=== PATIENT | male | born 1960 | race Caucasian/White ===

== ENCOUNTER 2016-09-19 13:55 | Emergency (ER) | payer BC, OTHER ==
[~2016-09-19] VITALS: Ht 180.3 cm; Wt 104.3 kg
[~2016-09-19 13:55] MED LIST: HYDR25TA4 OR; LISI-646 OR
[2016-09-19 17:11] VITALS: BP 128/66
== END 2016-09-19 17:24 | disposition home or self-care (01) ==
LOC: ER 13:55
DX: S76.012D Strain of muscle, fascia and tendon of left hip, subsequent encounter (principal); Z79.899 Other long term (current) drug therapy; I10 Essential (primary) hypertension

== ENCOUNTER 2016-09-29 13:14 | Emergency (ER) | payer BC ==
[~2016-09-29] VITALS: Ht 182.9 cm; Wt 104.3 kg
[2016-09-29 15:40] VITALS: BP 190/104
[2016-09-29] MEDS ORDERED: LISINOPRIL 20 MG TAB PO ONE (15:45)
[2016-09-29] MEDS ORDERED: HCTZ 25 MG TAB PO ONE (15:45)
== END 2016-09-29 16:01 | disposition home or self-care (01) ==
LOC: ER 13:29
DX: M25.512 Pain in left shoulder (principal); M25.511 Pain in right shoulder; M25.552 Pain in left hip; M25.551 Pain in right hip; I10 Essential (primary) hypertension; Z76.0 Encounter for issue of repeat prescription

== ENCOUNTER 2023-06-19 16:18 | Inpatient (IN) | payer BC, OTHER ==
[~2023-06-19] VITALS: Ht 180.3 cm; Wt 99.4 kg
[~2023-06-19 16:18] MED LIST changes: -LISI-646 OR; +LISI20TA56 OR
[2023-06-19 17:20] LABS: Urine Bacteria NONE SEEN /hpf (None Seen); Urine Blood Negative /uL (Negative); Urine Clarity Clear (Clear); Urine Color Yellow (Yellow); Urine Mucus FEW (None Seen); Urine Protein, UAD 1+ (Negative); Urine WBC 1 /hpf (0 - 3)
[2023-06-19 17:42] LABS: Mean Corpuscular Hgb Conc. 34.2 g/dL (32.0-36.0)
[2023-06-19 17:43] LABS: Hematocrit 51.1 % (41.0-53.0); Hemoglobin 17.5 g/dL (13.5-17.5); Mean Corpuscular Hemoglobin 29.1 pg (28.0-32.0); Mean Corpuscular Volume 85.2 fL (80.0-100.0); Red Blood Cells 5.99 10^6/uL (4.5-5.90); Red Cell Distribution Width 13.5 % (11.8-14.3)
[2023-06-19] MEDS ORDERED: metroNIDAZOLE 500MG/100ML 100 ML IV ONE (18:00)
[2023-06-19 18:21] LABS: White Blood Cell 37.5 10^3/uL (4.4-10.8)
[2023-06-19 18:22] LABS: Basophils % (manual) 0 (0.0-2.0); Blast Cells 0; Eosinophils % (manual) 0 (0-7); Myelocytes % 0; Promyelocytes % 0; Reactive Lymphocytes 0
[2023-06-19 18:40] LABS: Band Neutrophils % (manual) 7; Lymphocytes % (manual) 4 (10.0-50.0); Metamyelocytes % 1; Monocytes % (manual) 10 (0-12); Platelet Estimate Adequate
[2023-06-19 18:48] LABS: Alanine Aminotransferase 68 U/L (7-40); Albumin 4.8 g/dL (3.2-4.8); Alkaline Phosphatase 147 U/L (46-116); Anion Gap 16 (5-15); Aspartate Aminotransferase 46 U/L (13-40); BUN/Creatinine Ratio 16.8 (10.0-20.0); Blood Urea Nitrogen 19 mg/dL (9-23); Calcium 10.2 mg/dL (8.7-10.4); Carbon Dioxide 16 mmol/L (20-30); Chloride 106 mmol/L (98-107); Glucose 199 mg/dL (74-106); Lipase 30 U/L (12-53); Potassium 4.2 mmol/L (3.5-5.1); Sodium 138 mmol/L (136-145)
[2023-06-19 18:49] LABS: Bilirubin, Total 1.1 mg/dL (0.2-1.0); Total Protein 7.5 g/dL (5.7-8.2)
[2023-06-19] MEDS ORDERED: SODIUM CHLORIDE 0.9% 1,000 ML IV ONE (19:00)
[2023-06-19] MEDS ORDERED: levoFLOXacin 750MG 150 ML IV ONE (20:00)
[2023-06-19] MEDS ORDERED: MORPHINE SULFATE INJ 2 MG/ml SYRG IV PRN ×2 (21:00)
[2023-06-19] MEDS ORDERED: ONDANSETRON HCL 4 MG/2 ML VIAL IV PRN (21:00)
[2023-06-19] MEDS ORDERED: NITROGLYCERIN 0.4 MG SL TAB SL PRN (21:00)
[2023-06-19] MEDS ORDERED: SODIUM CHLORIDE 0.9% 1,000 ML IV SCH ×3 (21:00→23:45)
[2023-06-19 21:43] LABS: Lactic Acid w/Reflex 9.1 mmol/L (0.4-2.0)
[2023-06-19 22:00] VITALS: PULSE 122; RESP 41; O2SAT 100
[2023-06-19 23:00] LABS: Alanine Aminotransferase 68 U/L (7-40); Alkaline Phosphatase 128 U/L (46-116)
[2023-06-19 23:01] LABS: Albumin 4.7 g/dL (3.2-4.8); Anion Gap 24.00001 (5-15); Aspartate Aminotransferase 46 U/L (13-40); BUN/Creatinine Ratio 9.5 (10.0-20.0); Bilirubin, Total 1.2 mg/dL (0.2-1.0); Blood Urea Nitrogen 14 mg/dL (9-23); Chloride 105 mmol/L (98-107); Glucose 246 mg/dL (74-106); Potassium 4.6 mmol/L (3.5-5.1); Sodium 139 mmol/L (136-145); Total Protein 7.8 g/dL (5.7-8.2)
[2023-06-19 23:08] LABS: Carbon Dioxide < 10 mmol/L (20-30)
[2023-06-19 23:10] LABS: Hemoglobin 17.6 g/dL (13.5-17.5)
[2023-06-19 23:12] LABS: Hematocrit 53.8 % (41.0-53.0); Mean Corpuscular Hemoglobin 28.9 pg (28.0-32.0); Mean Corpuscular Hgb Conc. 32.7 g/dL (32.0-36.0); Mean Corpuscular Volume 88.3 fL (80.0-100.0); Red Blood Cells 6.09 10^6/uL (4.5-5.90); Red Cell Distribution Width 13.7 % (11.8-14.3)
[2023-06-19 23:16] LABS: White Blood Cell 36.6 10^3/uL (4.4-10.8)
[2023-06-19 23:17] LABS: Basophils % (manual) 0 (0.0-2.0); Blast Cells 0; Eosinophils % (manual) 0 (0-7); Metamyelocytes % 0; Myelocytes % 0; Promyelocytes % 0; Reactive Lymphocytes 0
[2023-06-19 23:22] LABS: INR 1.14 (0.9-1.15); Partial Thromboplastin Time 27.2 SEC (24.5-34.5); Prothrombin Time 11.9 sec (9.3-11.8)
[2023-06-20] VITALS (59 sets, daily range): BP systolic 65–113; BP diastolic 28–67; PULSE 92–128; RESP 18–50; TEMP 97.2–99.1; O2SAT 81–97
[2023-06-20] MEDS: SODIUM CHLORIDE 0.9% 1,000 ML IV SCH ×2 (00:04→12:08)
[2023-06-20 00:11] LABS: Band Neutrophils % (manual) 19; Lymphocytes % (manual) 3 (10.0-50.0)
[2023-06-20 00:12] LABS: Monocytes % (manual) 13 (0-12); Platelet Estimate Adequate; RBC Morphology Normal
[2023-06-20] MEDS ORDERED: VANCOMYCIN PER PHARMACY 0 MG IV SCH (00:30)
[2023-06-20 00:43] LABS: Base Excess -8.9 mmol/L (-2.0-2.0)
[2023-06-20] MEDS ORDERED: VANCOMYCIN 1GM/250ML 250 ML IV ONE (01:00)
[2023-06-20] MEDS: metroNIDAZOLE 500MG/100ML 100 ML IV SCH ×4 (01:38→22:00)
[2023-06-20 05:47] LABS: Hematocrit 49.4 % (41.0-53.0); Hemoglobin 16.9 g/dL (13.5-17.5); Mean Corpuscular Hemoglobin 29.7 pg (28.0-32.0); Mean Corpuscular Hgb Conc. 34.2 g/dL (32.0-36.0); Mean Corpuscular Volume 86.8 fL (80.0-100.0); Red Blood Cells 5.69 10^6/uL (4.5-5.90); White Blood Cell 20.3 10^3/uL (4.4-10.8)
[2023-06-20 05:57] LABS: Basophils % (manual) 0 (0.0-2.0); Blast Cells 0; Eosinophils % (manual) 0 (0-7); Myelocytes % 0; Promyelocytes % 0; Reactive Lymphocytes 0
[2023-06-20 05:59] LABS: Alanine Aminotransferase 79 U/L (7-40); Alkaline Phosphatase 146 U/L (46-116); Anion Gap 16 (5-15); Aspartate Aminotransferase 57 U/L (13-40); BUN/Creatinine Ratio 12.9 (10.0-20.0); Calcium 9.4 mg/dL (8.5-10.1); Chloride 104 mmol/L (98-107); Glucose 179 mg/dL (74-106); Potassium 4.9 mmol/L (3.5-5.1); Sodium 140 mmol/L (136-145)
[2023-06-20 06:00] LABS: Albumin 4.2 g/dL (3.2-4.8)
[2023-06-20 06:01] LABS: Bilirubin, Total 1.4 mg/dL (0.2-1.0); Total Protein 6.9 g/dL (5.7-8.2)
[2023-06-20 06:33] LABS: Blood Urea Nitrogen 26 mg/dL (9-23); Carbon Dioxide 20 mmol/L (20-30)
[2023-06-20 07:16] LABS: Band Neutrophils % (manual) 24; Lymphocytes % (manual) 5 (10.0-50.0); Metamyelocytes % 7; Monocytes % (manual) 8 (0-12); Platelet Estimate Adequate
[2023-06-20 07:27] LABS: Lactic Acid w/Reflex 4.3 mmol/L (0.4-2.0)
[2023-06-20] MEDS ORDERED: ALBUMIN 25% 100 ML IV ONE ×2 (07:30→08:12)
[2023-06-20] MEDS ORDERED: cefTRIAXone 1GM/50ML D5W 50 ML IV SCH (09:00)
[2023-06-20] MEDS ORDERED: CLINIMIX PER PHARMACY 0 ML IV SCH (12:30)
[2023-06-20 13:16] LABS: Magnesium 2.3 mg/dL (1.6-2.6)
[2023-06-20 13:18] LABS: Phosphorus 2.4 mg/dL (2.4-5.1)
[2023-06-20] MEDS ORDERED: PANTOPRAZOLE 40 MG/10 ML VIAL INJ IV ONE (14:15)
[2023-06-20] MEDS: SODIUM BICARBONATE 50ML VIAL 50 ML in SOD CHL 0.45% 1,000 ML IV SCH ×2 (14:15→16:00)
[2023-06-20] MEDS ORDERED: CEFEPIME 2GM/50ML NS 50 ML IV ONE (14:15)
[2023-06-20] MEDS ORDERED: SODIUM PHOSPHATES 10 MEQ in SODIUM CHL 0.9% 100 ML IV ONE (15:00)
[2023-06-20] MEDS ORDERED: ROCURONIUM 10MG/ML 10ML VIAL IV ONE (15:14)
[2023-06-20] MEDS ORDERED: SUCCINYLCHOLINE CHLORIDE 20 MG/ML 10ML VIAL IV ONE (15:14)
[2023-06-20] MEDS ORDERED: NOREPINEPHRINE 8 MG/250ML KIT 0 ML IV ONE (15:16)
[2023-06-20] MEDS ORDERED: SODIUM BICARBONATE 8.4 % INJ 50ML VIAL IV ONE ×3 (15:19→19:12)
[2023-06-20 15:20] LABS: Base Excess -9.4 mmol/L (-2.0-2.0)
[2023-06-20] MEDS ORDERED: fentaNYL CITRATE 100 MCG/2 ML VL ONE (15:20)
[2023-06-20] MEDS ORDERED: ETOMIDATE (2MG/ML) 20ML VIAL IV ONE (15:20)
[2023-06-20] MEDS ORDERED: fentaNYL CITRATE 5 ML ONE ×3 (15:20→18:56)
[2023-06-20] MEDS ORDERED: HYDROmorphone HCL 2 MG/ML VL/or syr ONE (15:20)
[2023-06-20] MEDS ORDERED: SODIUM CHLORIDE LOCK 40 ML ONE (15:20)
[2023-06-20] MEDS ORDERED: MIDAZOLAM HCL 2MG/2ML 2ml VIAL (1mg/ml) ONE ×5 (15:20→19:22)
[2023-06-20] MEDS ORDERED: DexAMETHasone SOD PHOS 10MG/1ML VIAL INJ ONE (15:20)
[2023-06-20 15:27] LABS: Hematocrit 44.5 % (41.0-53.0); Hemoglobin 14.6 g/dL (13.5-17.5); Mean Corpuscular Hemoglobin 28.8 pg (28.0-32.0); Mean Corpuscular Hgb Conc. 32.9 g/dL (32.0-36.0); Mean Corpuscular Volume 87.4 fL (80.0-100.0); Red Blood Cells 5.09 10^6/uL (4.5-5.90); Red Cell Distribution Width 14.1 % (11.8-14.3); White Blood Cell 14.9 10^3/uL (4.4-10.8)
[2023-06-20 15:30] LABS: Basophils % (manual) 0 (0.0-2.0); Blast Cells 0; Eosinophils % (manual) 0 (0-7); Myelocytes % 0; Promyelocytes % 0; Reactive Lymphocytes 0
[2023-06-20] MEDS: NOREPINEPHRINE 8 MG/250ML KIT 250 ML IV SCH (15:30)
[2023-06-20 15:42] LABS: Chloride 109 mmol/L (98-107); Potassium 4.5 mmol/L (3.5-5.1); Sodium 143 mmol/L (136-145)
[2023-06-20 15:43] LABS: Anion Gap 14 (5-15); Carbon Dioxide 20 mmol/L (20-30)
[2023-06-20 15:44] LABS: Calcium 8.8 mg/dL (8.5-10.1)
[2023-06-20 15:48] LABS: BUN/Creatinine Ratio 12.2 (10.0-20.0); Glucose 111 mg/dL (74-106)
[2023-06-20 15:50] LABS: Blood Urea Nitrogen 40 mg/dL (9-23)
[2023-06-20] MEDS ORDERED: LIDOCAINE 1% (LOCAL ANESTH.) PF 5ml SDV ID ONE (16:15)
[2023-06-20 16:32] LABS: Band Neutrophils % (manual) 40; Lymphocytes % (manual) 8 (10.0-50.0); Metamyelocytes % 1; Monocytes % (manual) 21 (0-12); Platelet Estimate Adequate
[2023-06-20 16:33] LABS: Large Platelets FEW; RBC Morphology Normal
[2023-06-20] MEDS ORDERED: PHENYLEPHRINE HCL 10 MG/ML VL ONE (17:12)
[2023-06-20 18:02] LABS: Base Excess -12.9 mmol/L (-2.0-2.0)
[2023-06-20] MEDS: MIDAZOLAM DRIP 50 mg/50mL 50 ML IV SCH ×2 (20:00→23:28)
[2023-06-20] MEDS: fentaNYL Drip 2500mCg/250mlNS 250 ML IV SCH (20:10)
[2023-06-20] MEDS: D5W/SOD CHL 0.45% 1,000 ML IV SCH (20:30)
[2023-06-20] MEDS: PHENYLEPHRINE IV 250 ML IV SCH (20:50)
[2023-06-20] MEDS: SODIUM CHLOR 0.9% PF (SALINE LOCK) 10ML VIAL/SYR IV SCH (22:00)
[2023-06-20 22:01] LABS: Hematocrit 40.3 % (41.0-53.0); Hemoglobin 13.5 g/dL (13.5-17.5); Mean Corpuscular Hemoglobin 29.3 pg (28.0-32.0); Mean Corpuscular Hgb Conc. 33.6 g/dL (32.0-36.0); Mean Corpuscular Volume 87.1 fL (80.0-100.0); Red Blood Cells 4.62 10^6/uL (4.5-5.90); Red Cell Distribution Width 13.8 % (11.8-14.3); White Blood Cell 5.9 10^3/uL (4.4-10.8)
[2023-06-20 22:07] LABS: Basophils % (manual) 0 (0.0-2.0); Blast Cells 0; Eosinophils % (manual) 0 (0-7); Metamyelocytes % 0; Myelocytes % 0; Promyelocytes % 0; Reactive Lymphocytes 0
[2023-06-20 22:11] LABS: Chloride 111 mmol/L (98-107); Sodium 146 mmol/L (136-145)
[2023-06-20 22:12] LABS: Anion Gap 11 (5-15); Calcium 7.7 mg/dL (8.7-10.4); Carbon Dioxide 24 mmol/L (20-30)
[2023-06-20 22:17] LABS: BUN/Creatinine Ratio 14.9 (10.0-20.0); Blood Urea Nitrogen 43 mg/dL (9-23); Glucose 142 mg/dL (74-106)
[2023-06-20 22:32] LABS: Band Neutrophils % (manual) 26; Lymphocytes % (manual) 20 (10.0-50.0); Monocytes % (manual) 22 (0-12)
[2023-06-20 22:37] LABS: Anisocytosis Slight; Platelet Estimate Adequate
[2023-06-20 22:38] LABS: Large Platelets FEW
[2023-06-20] MEDS: AMINO ACID INFUSION IN D10W 1,000 ML IV NR (23:00)
[2023-06-20] MEDS: CEFEPIME 2GM/50ML NS 50 ML IV SCH (23:25)
[2023-06-21] VITALS (116 sets, daily range): BP systolic 66–143; BP diastolic 13–77; PULSE 80–97; RESP 16–24; TEMP 98.6–100; O2SAT 88–100
[2023-06-21] MEDS ORDERED: DEXTROSE (50%) 50ML SYRG IV SCH
[2023-06-21] MEDS: NOREPINEPHRINE 8 MG/250ML KIT 250 ML IV SCH ×3 (00:15→08:20)
[2023-06-21] MEDS: ACCU-CHEK COMFORT CURVE STRIP VI SCH ×5 (00:15→23:45)
[2023-06-21] MEDS: InsuLIN REG 1unit/0.01ml Soln (100units/ml) SC SCH ×5 (00:15→23:44)
[2023-06-21] MEDS: PHENYLEPHRINE IV 250 ML IV SCH ×6 (00:18→08:42)
[2023-06-21] MEDS: SODIUM BICARBONATE 50ML VIAL 50 ML in SOD CHL 0.45% 1,000 ML IV SCH ×2 (00:45→08:49)
[2023-06-21] MEDS ORDERED: SODIUM CHLORIDE 0.9% 1,000 ML IV ONE (03:00)
[2023-06-21] MEDS: MIDAZOLAM DRIP 50 mg/50mL 50 ML IV SCH ×4 (03:56→18:10)
[2023-06-21 04:39] LABS: Hematocrit 38.5 % (41.0-53.0); Hemoglobin 12.8 g/dL (13.5-17.5); Mean Corpuscular Hemoglobin 29.4 pg (28.0-32.0); Mean Corpuscular Hgb Conc. 33.2 g/dL (32.0-36.0); Mean Corpuscular Volume 88.4 fL (80.0-100.0); Red Blood Cells 4.35 10^6/uL (4.5-5.90); White Blood Cell 5.8 10^3/uL (4.4-10.8)
[2023-06-21 04:56] LABS: Basophils % (manual) 0 (0.0-2.0); Blast Cells 0; Promyelocytes % 0; Reactive Lymphocytes 0
[2023-06-21 05:02] LABS: INR 1.42 (0.9-1.15); Partial Thromboplastin Time 41.3 SEC (24.5-34.5); Prothrombin Time 14.6 sec (9.3-11.8)
[2023-06-21] MEDS ORDERED: LACTATED RINGER'S 1,000 ML IV ONE (05:15)
[2023-06-21] MEDS: metroNIDAZOLE 500MG/100ML 100 ML IV SCH ×3 (05:39→20:43)
[2023-06-21] MEDS: VASOPRESSIN 20 UNITS in SODIUM CHL 0.9% 99 ML IV SCH ×5 (05:45→17:18)
[2023-06-21 06:50] LABS: Band Neutrophils % (manual) 35; Eosinophils % (manual) 1 (0-7); Lymphocytes % (manual) 14 (10.0-50.0); Metamyelocytes % 1; Monocytes % (manual) 22 (0-12); Myelocytes % 10
[2023-06-21 06:51] LABS: Anisocytosis Slight; Large Platelets FEW; Platelet Estimate Adequate
[2023-06-21 06:55] LABS: Base Excess -6.6 mmol/L (-2.0-2.0)
[2023-06-21] MEDS ORDERED: ALBUMIN 25% 100 ML IV ONE (07:15)
[2023-06-21] MEDS: PANTOPRAZOLE 40 MG/10 ML VIAL INJ IV SCH (08:48)
[2023-06-21] MEDS: CEFEPIME 2GM/50ML NS 50 ML IV SCH ×2 (08:49→21:46)
[2023-06-21] MEDS: SODIUM CHLOR 0.9% PF (SALINE LOCK) 10ML VIAL/SYR IV SCH ×2 (08:49→20:43)
[2023-06-21] MEDS: D5W/SOD CHL 0.45% 1,000 ML IV SCH ×2 (08:49→15:03)
[2023-06-21] MEDS ORDERED: VANCOMYCIN 1GM/250ML 250 ML IV ONE (09:15)
[2023-06-21 10:36] LABS: Alanine Aminotransferase 194 U/L (7-40); Alkaline Phosphatase 92 U/L (46-116); Anion Gap 8 (5-15); Aspartate Aminotransferase 212 U/L (13-40); BUN/Creatinine Ratio 15.4 (10.0-20.0); Bilirubin, Total 1.1 mg/dL (0.2-1.0); Blood Urea Nitrogen 38 mg/dL (9-23); Calcium 7.3 mg/dL (8.5-10.1); Carbon Dioxide 24 mmol/L (20-30); Chloride 110 mmol/L (98-107); Glucose 186 mg/dL (74-106); Phosphorus 4.9 mg/dL (2.4-5.1); Potassium 5.2 mmol/L (3.5-5.1); Sodium 142 mmol/L (136-145); Total Protein 4.7 g/dL (5.7-8.2)
[2023-06-21 11:06] LABS: Protein, Urine 92.7 mg/dL (0.0-11.9)
[2023-06-21 11:08] LABS: Creatinine, Urine 123.29 mg/dL (30.0-125.0); Urine Protein/Creatinine Ratio 0.75
[2023-06-21] MEDS ORDERED: FUROSEMIDE 100 MG/10ML VIAL IV ONE (14:15)
[2023-06-21] MEDS ORDERED: SOD CHL 0.45% 1,000 ML IV SCH (14:30)
[2023-06-21] MEDS ORDERED: TPN PER PHARMACY 0 ML IV SCH (15:30)
[2023-06-21] MEDS ORDERED: LOSA50TA46 PO (16:47)
[2023-06-21] MEDS ORDERED: HYDR25TA4 PO (16:47)
[2023-06-21] MEDS ORDERED: CITA-77 PO (16:47)
[2023-06-21] MEDS ORDERED: ROSU10TA16 PO (16:47)
[2023-06-21 16:49] LABS: Base Excess -7.9 mmol/L (-2.0-2.0)
[2023-06-21] MEDS: NOREPINEPHRINE BITARTRATE 32 MG in SODIUM CHL 0.9% 218 ML IV SCH (17:01)
[2023-06-21] MEDS: PHENYLEPHRINE INJ 80 MG in SODIUM CHL 0.9% 242 ML IV SCH (17:01)
[2023-06-21] MEDS: fentaNYL Drip 2500mCg/250mlNS 250 ML IV SCH (18:14)
[2023-06-21 19:04] LABS: Anion Gap 6 (5-15); Calcium 6.6 mg/dL (8.7-10.4); Carbon Dioxide 22 mmol/L (20-30); Chloride 110 mmol/L (98-107); Potassium 4.7 mmol/L (3.5-5.1); Sodium 138 mmol/L (136-145)
[2023-06-21 19:08] LABS: Glucose 207 mg/dL (74-106)
[2023-06-21 19:09] LABS: Magnesium 1.6 mg/dL (1.6-2.6)
[2023-06-21 19:10] LABS: BUN/Creatinine Ratio 21.1 (10.0-20.0)
[2023-06-21 19:17] LABS: Blood Urea Nitrogen 50 mg/dL (9-23)
[2023-06-21] MEDS: MAGNESIUM SULFATE 1GM/100ML 100 ML IV SCH ×2 (20:33→21:46)
[2023-06-21] MEDS: AMINO ACID INFUSION IN D10W 1,000 ML IV NR (20:33)
[2023-06-22] VITALS (114 sets, daily range): BP systolic 71–123; BP diastolic 38–81; PULSE 77–119; RESP 17–24; TEMP 97.5–100.2; O2SAT 95–100
[2023-06-22] MEDS: D5W/SOD CHL 0.45% 1,000 ML IV SCH ×3 (02:11→20:15)
[2023-06-22] MEDS: MIDAZOLAM DRIP 50 mg/50mL 50 ML IV SCH ×5 (02:23→21:54)
[2023-06-22] MEDS: NOREPINEPHRINE BITARTRATE 32 MG in SODIUM CHL 0.9% 218 ML IV SCH ×2 (04:12→18:39)
[2023-06-22] MEDS: PHENYLEPHRINE INJ 80 MG in SODIUM CHL 0.9% 242 ML IV SCH ×2 (04:13→15:54)
[2023-06-22 04:40] LABS: Basophils # (auto) 0 10 ^3/uL (0-0.2); Basophils % (auto) 0.2 % (0.0-2.0); Eosinophils # (auto) 0.2 10 ^3/uL (0-0.8); Eosinophils % (auto) 1.1 % (0.0-7.0); Hematocrit 33.8 % (41.0-53.0); Hemoglobin 11.3 g/dL (13.5-17.5); Lymphocytes # (auto) 0.8 10 ^3/uL (0.4-5.4); Lymphocytes % (auto) 5.8 % (10.0-50.0); Mean Corpuscular Hgb Conc. 33.5 g/dL (32.0-36.0); Mean Corpuscular Volume 86.5 fL (80.0-100.0); Monocytes % (auto) 7.1 % (0.0-12.0); Neutrophils # (auto) 12.5 10 ^3/uL (1.6-8.6); Neutrophils % (auto) 85.8 % (37.0-80.0); Nucleated Red Blood Cells % 0.1 %; Red Blood Cells 3.91 10^6/uL (4.5-5.90); Red Cell Distribution Width 14.1 % (11.8-14.3); White Blood Cell 14.6 10^3/uL (4.4-10.8)
[2023-06-22 04:56] LABS: Alanine Aminotransferase 189 U/L (7-40); Albumin 2.8 g/dL (3.2-4.8); Alkaline Phosphatase 78 U/L (46-116); Anion Gap 9 (5-15); Aspartate Aminotransferase 175 U/L (13-40); BUN/Creatinine Ratio 17.7 (10.0-20.0); Blood Urea Nitrogen 47 mg/dL (9-23); Calcium 7.3 mg/dL (8.5-10.1); Carbon Dioxide 21 mmol/L (20-30); Chloride 108 mmol/L (98-107); Glucose 159 mg/dL (74-106); Potassium 4.4 mmol/L (3.5-5.1); Sodium 138 mmol/L (136-145); Triglycerides 116 mg/dL (< 150)
[2023-06-22 04:57] LABS: Phosphorus 4.2 mg/dL (2.4-5.1); Total Protein 4.6 g/dL (5.7-8.2)
[2023-06-22] MEDS: metroNIDAZOLE 500MG/100ML 100 ML IV SCH ×3 (05:13→20:57)
[2023-06-22] MEDS: InsuLIN REG 1unit/0.01ml Soln (100units/ml) SC SCH ×4 (05:18→23:27)
[2023-06-22] MEDS: ACCU-CHEK COMFORT CURVE STRIP VI SCH ×4 (05:18→23:27)
[2023-06-22 07:55] LABS: Base Excess -7.5 mmol/L (-2.0-2.0)
[2023-06-22] MEDS: CEFEPIME 2GM/50ML NS 50 ML IV SCH ×2 (09:32→21:06)
[2023-06-22] MEDS: PANTOPRAZOLE 40 MG/10 ML VIAL INJ IV SCH (09:32)
[2023-06-22] MEDS: SODIUM CHLOR 0.9% PF (SALINE LOCK) 10ML VIAL/SYR IV SCH ×2 (09:32→21:06)
[2023-06-22] MEDS ORDERED: VANCOMYCIN 1GM/250ML 250 ML IV ONE (10:00)
[2023-06-22] MEDS ORDERED: FUROSEMIDE 100 MG/10ML VIAL IV ONE (13:45)
[2023-06-22] MEDS: ENOXAPARIN SOD 30 MG/0.3 ML SYRINGE SC SCH (14:09)
[2023-06-22] MEDS: fentaNYL Drip 2500mCg/250mlNS 250 ML IV SCH (14:27)
[2023-06-22] MEDS ORDERED: TPN PER PHARMACY IV NR ×10 (20:00)
[2023-06-22] MEDS: VASOPRESSIN 20 UNITS in SODIUM CHL 0.9% 99 ML IV SCH (22:50)
[2023-06-23] VITALS (114 sets, daily range): BP systolic 88–222; BP diastolic 46–181; PULSE 65–153; RESP 10–24; TEMP 98.2–100.2; O2SAT 80–100
[2023-06-23] MEDS: D5W/SOD CHL 0.45% 1,000 ML IV SCH ×2 (01:00→10:09)
[2023-06-23] MEDS: PHENYLEPHRINE INJ 80 MG in SODIUM CHL 0.9% 242 ML IV SCH ×2 (01:01→12:35)
[2023-06-23] MEDS: MIDAZOLAM DRIP 50 mg/50mL 50 ML IV SCH ×5 (02:21→21:58)
[2023-06-23 04:34] LABS: Basophils # (auto) 0.1 10 ^3/uL (0-0.2); Basophils % (auto) 0.3 % (0.0-2.0); Eosinophils # (auto) 0.2 10 ^3/uL (0-0.8); Eosinophils % (auto) 1.3 % (0.0-7.0); Hemoglobin 11.2 g/dL (13.5-17.5); Lymphocytes # (auto) 0.8 10 ^3/uL (0.4-5.4); Lymphocytes % (auto) 4.3 % (10.0-50.0); Mean Corpuscular Hemoglobin 28.4 pg (28.0-32.0); Mean Corpuscular Hgb Conc. 32.8 g/dL (32.0-36.0); Mean Corpuscular Volume 86.7 fL (80.0-100.0); Monocytes # (auto) 1.6 10 ^3/uL (0-1.3); Neutrophils # (auto) 15.4 10 ^3/uL (1.6-8.6); Neutrophils % (auto) 85.1 % (37.0-80.0); Red Blood Cells 3.92 10^6/uL (4.5-5.90); Red Cell Distribution Width 14.2 % (11.8-14.3); White Blood Cell 18.1 10^3/uL (4.4-10.8)
[2023-06-23 05:08] LABS: Alanine Aminotransferase 146 U/L (7-40); Albumin 2.8 g/dL (3.2-4.8); Alkaline Phosphatase 104 U/L (46-116); Anion Gap 7 (5-15); Aspartate Aminotransferase 99 U/L (13-40); BUN/Creatinine Ratio 16.9 (10.0-20.0); Blood Urea Nitrogen 50 mg/dL (9-23); Calcium 7.8 mg/dL (8.7-10.4); Carbon Dioxide 19 mmol/L (20-30); Chloride 109 mmol/L (98-107); Glucose 189 mg/dL (74-106); Phosphorus 3.6 mg/dL (2.4-5.1); Potassium 4.2 mmol/L (3.5-5.1); Sodium 135 mmol/L (136-145)
[2023-06-23 05:09] LABS: Bilirubin, Total 0.6 mg/dL (0.2-1.0); Total Protein 4.8 g/dL (5.7-8.2)
[2023-06-23] MEDS: metroNIDAZOLE 500MG/100ML 100 ML IV SCH ×3 (05:23→21:31)
[2023-06-23] MEDS: InsuLIN REG 1unit/0.01ml Soln (100units/ml) SC SCH ×3 (05:48→18:17)
[2023-06-23] MEDS: ACCU-CHEK COMFORT CURVE STRIP VI SCH ×3 (05:48→18:11)
[2023-06-23 07:41] LABS: Base Excess -8.9 mmol/L (-2.0-2.0)
[2023-06-23] MEDS ORDERED: BUMETANIDE 2.5mg/10ml (0.25 mg/ml) INJ IV ONE (08:15)
[2023-06-23] MEDS: VASOPRESSIN 20 UNITS in SODIUM CHL 0.9% 99 ML IV SCH ×2 (10:05→21:10)
[2023-06-23] MEDS: SODIUM CHLOR 0.9% PF (SALINE LOCK) 10ML VIAL/SYR IV SCH ×2 (10:09→21:31)
[2023-06-23] MEDS: PANTOPRAZOLE 40 MG/10 ML VIAL INJ IV SCH (10:09)
[2023-06-23] MEDS: ENOXAPARIN SOD 30 MG/0.3 ML SYRINGE SC SCH (10:09)
[2023-06-23] MEDS: CEFEPIME 2GM/50ML NS 50 ML IV SCH ×2 (10:09→21:31)
[2023-06-23] MEDS: NOREPINEPHRINE BITARTRATE 32 MG in SODIUM CHL 0.9% 218 ML IV SCH (10:59)
[2023-06-23] MEDS ORDERED: VANCOMYCIN 1GM/250ML 250 ML IV ONE (13:45)
[2023-06-23] MEDS: fentaNYL Drip 2500mCg/250mlNS 250 ML IV SCH (16:44)
[2023-06-23] MEDS ORDERED: TPN PER PHARMACY IV NR ×12 (20:00)
[2023-06-24] VITALS (109 sets, daily range): BP systolic 83–128; BP diastolic 39–74; PULSE 63–88; RESP 16–24; TEMP 97.9–99.3; O2SAT 68–100
[2023-06-24] MEDS: ACCU-CHEK COMFORT CURVE STRIP VI SCH ×4 (00:32→17:33)
[2023-06-24] MEDS: InsuLIN REG 1unit/0.01ml Soln (100units/ml) SC SCH ×4 (00:43→17:49)
[2023-06-24] MEDS: MIDAZOLAM DRIP 50 mg/50mL 50 ML IV SCH ×5 (01:09→21:28)
[2023-06-24] MEDS: NOREPINEPHRINE BITARTRATE 32 MG in SODIUM CHL 0.9% 218 ML IV SCH ×2 (03:18→17:33)
[2023-06-24 03:54] LABS: Alanine Aminotransferase 104 U/L (7-40); Albumin 2.7 g/dL (3.2-4.8); Alkaline Phosphatase 129 U/L (46-116); Anion Gap 5 (5-15); Aspartate Aminotransferase 60 U/L (13-40); BUN/Creatinine Ratio 17.4 (10.0-20.0); Blood Urea Nitrogen 48 mg/dL (9-23); Calcium 8.2 mg/dL (8.7-10.4); Carbon Dioxide 23 mmol/L (20-30); Chloride 110 mmol/L (98-107); Glucose 211 mg/dL (74-106); Potassium 3.9 mmol/L (3.5-5.1); Sodium 138 mmol/L (136-145)
[2023-06-24 03:55] LABS: Bilirubin, Total 0.4 mg/dL (0.2-1.0); Phosphorus 2.9 mg/dL (2.4-5.1); Total Protein 4.7 g/dL (5.7-8.2)
[2023-06-24] MEDS: fentaNYL Drip 2500mCg/250mlNS 250 ML IV SCH ×2 (05:30→15:24)
[2023-06-24] MEDS: metroNIDAZOLE 500MG/100ML 100 ML IV SCH ×3 (05:51→21:41)
[2023-06-24] MEDS: D5W/SOD CHL 0.45% 1,000 ML IV SCH (05:51)
[2023-06-24] MEDS: VASOPRESSIN 20 UNITS in SODIUM CHL 0.9% 99 ML IV SCH ×2 (08:18→17:06)
[2023-06-24 08:30] LABS: Hematocrit 32.1 % (41.0-53.0); Hemoglobin 10.6 g/dL (13.5-17.5); Mean Corpuscular Volume 90.8 fL (80.0-100.0); Red Blood Cells 3.53 10^6/uL (4.5-5.90); Red Cell Distribution Width 15.3 % (11.8-14.3); White Blood Cell 11.5 10^3/uL (4.4-10.8)
[2023-06-24 08:43] LABS: Basophils % (manual) 0 (0.0-2.0); Blast Cells 0; Monocytes % (manual) 0 (0-12); Promyelocytes % 0; Reactive Lymphocytes 0
[2023-06-24 09:00] LABS: Band Neutrophils % (manual) 9; Lymphocytes % (manual) 7 (10.0-50.0)
[2023-06-24 09:01] LABS: Anisocytosis Slight; Eosinophils % (manual) 3 (0-7); Metamyelocytes % 1; Myelocytes % 1; Platelet Estimate Adequate
[2023-06-24 09:28] LABS: Base Excess -6.3 mmol/L (-2.0-2.0)
[2023-06-24] MEDS: PROPOFOL 100 ML IV SCH (09:45)
[2023-06-24] MEDS: PANTOPRAZOLE 40 MG/10 ML VIAL INJ IV SCH (09:53)
[2023-06-24] MEDS: CEFEPIME 2GM/50ML NS 50 ML IV SCH ×2 (09:53→21:41)
[2023-06-24] MEDS: SODIUM CHLOR 0.9% PF (SALINE LOCK) 10ML VIAL/SYR IV SCH ×2 (09:55→21:41)
[2023-06-24] MEDS ORDERED: LIDOCAINE 2% JELLY 11ml (GLYDO) ONE (10:59)
[2023-06-24] MEDS ORDERED: EPINEPHrine HCL 1 MG/10 ML SYRG ONE (11:00)
[2023-06-24] MEDS ORDERED: LIDOCAINE 2%HCL (LOCAL ANESTH.) INJ 20ML MDV ONE (11:00)
[2023-06-24] MEDS ORDERED: GLYCOPYRROLATE 0.2 MG/ML 1ML VIAL ONE (11:01)
[2023-06-24] MEDS ORDERED: EPINEPHrine HCL 1 MG/1 ML AMP ONE (11:04)
[2023-06-24 11:18] LABS: INR 1.31 (0.9-1.15); Partial Thromboplastin Time 37.6 SEC (24.5-34.5); Prothrombin Time 13.5 sec (9.3-11.8)
[2023-06-24] MEDS ORDERED: SODIUM BICARBONATE 8.4 % INJ 50ML VIAL IV ONE (11:30)
[2023-06-24] MEDS ORDERED: VANCOMYCIN 500 MG in D5W 5% 100 ML IV ONE (13:00)
[2023-06-24] MEDS ORDERED: ROCURONIUM 10MG/ML 10ML VIAL IV ONE ×2 (13:15→13:30)
[2023-06-24] MEDS ORDERED: BUMETANIDE 2.5mg/10ml (0.25 mg/ml) INJ IV ONE (14:00)
[2023-06-24] MEDS: PHENYLEPHRINE INJ 80 MG in SODIUM CHL 0.9% 242 ML IV SCH (14:30)
[2023-06-24] MEDS: ENOXAPARIN SOD 30 MG/0.3 ML SYRINGE SC SCH (15:30)
[2023-06-24] MEDS ORDERED: TPN PER PHARMACY IV NR ×12 (20:00)
[2023-06-25] VITALS (102 sets, daily range): BP systolic 80–141; BP diastolic 36–68; PULSE 60–85; RESP 8–28; TEMP 97–99.5; O2SAT 93–100
[2023-06-25 04:50] LABS: Alanine Aminotransferase 75 U/L (7-40); Albumin 2.7 g/dL (3.2-4.8); Alkaline Phosphatase 127 U/L (46-116); Anion Gap 9 (5-15); Aspartate Aminotransferase 43 U/L (13-40); BUN/Creatinine Ratio 19.9 (10.0-20.0); Bilirubin, Total 0.5 mg/dL (0.2-1.0); Blood Urea Nitrogen 54 mg/dL (9-23); Calcium 8.4 mg/dL (8.5-10.1); Carbon Dioxide 23 mmol/L (20-30); Chloride 111 mmol/L (98-107); Glucose 155 mg/dL (74-106); Phosphorus 3.2 mg/dL (2.4-5.1); Potassium 3.7 mmol/L (3.5-5.1); Sodium 143 mmol/L (136-145); Total Protein 4.8 g/dL (5.7-8.2)
[2023-06-25] MEDS: metroNIDAZOLE 500MG/100ML 100 ML IV SCH ×3 (05:39→21:57)
[2023-06-25] MEDS: ACCU-CHEK COMFORT CURVE STRIP VI SCH ×4 (05:40→18:01)
[2023-06-25] MEDS: InsuLIN REG 1unit/0.01ml Soln (100units/ml) SC SCH ×4 (05:49→18:19)
[2023-06-25] MEDS: MIDAZOLAM DRIP 50 mg/50mL 50 ML IV SCH ×2 (05:56→23:10)
[2023-06-25] MEDS: VASOPRESSIN 20 UNITS in SODIUM CHL 0.9% 99 ML IV SCH ×2 (06:33→17:40)
[2023-06-25] MEDS: BUMETANIDE 2.5mg/10ml (0.25 mg/ml) INJ IV SCH ×2 (07:46→18:01)
[2023-06-25] MEDS: PROPOFOL 100 ML IV SCH (08:22)
[2023-06-25 09:05] LABS: Base Excess -2.1 mmol/L (-2.0-2.0)
[2023-06-25] MEDS: CEFEPIME 2GM/50ML NS 50 ML IV SCH ×2 (10:08→23:08)
[2023-06-25] MEDS: SODIUM CHLOR 0.9% PF (SALINE LOCK) 10ML VIAL/SYR IV SCH ×2 (10:08→21:59)
[2023-06-25] MEDS: PANTOPRAZOLE 40 MG/10 ML VIAL INJ IV SCH (10:08)
[2023-06-25] MEDS: ENOXAPARIN SOD 30 MG/0.3 ML SYRINGE SC SCH (10:09)
[2023-06-25] MEDS: fentaNYL Drip 2500mCg/250mlNS 250 ML IV SCH (10:12)
[2023-06-25] MEDS: PHENYLEPHRINE INJ 80 MG in SODIUM CHL 0.9% 242 ML IV SCH (13:19)
[2023-06-25] MEDS: SOD CHL 0.45% 1,000 ML IV SCH (14:55)
[2023-06-25] MEDS ORDERED: TPN PER PHARMACY IV NR ×12 (20:00)
[2023-06-26] VITALS (110 sets, daily range): BP systolic 68–133; BP diastolic 34–71; PULSE 67–89; RESP 12–28; TEMP 90.3–99.9; O2SAT 91–99
[2023-06-26] MEDS: ACCU-CHEK COMFORT CURVE STRIP VI SCH ×5 (00:09→23:51)
[2023-06-26] MEDS: InsuLIN REG 1unit/0.01ml Soln (100units/ml) SC SCH ×5 (00:10→23:55)
[2023-06-26] MEDS: NOREPINEPHRINE BITARTRATE 32 MG in SODIUM CHL 0.9% 218 ML IV SCH (00:16)
[2023-06-26] MEDS: SOD CHL 0.45% 1,000 ML IV SCH ×3 (04:35→19:50)
[2023-06-26] MEDS: VASOPRESSIN 20 UNITS in SODIUM CHL 0.9% 99 ML IV SCH ×2 (04:36→15:54)
[2023-06-26] MEDS: metroNIDAZOLE 500MG/100ML 100 ML IV SCH ×3 (05:25→21:31)
[2023-06-26] MEDS: BUMETANIDE 2.5mg/10ml (0.25 mg/ml) INJ IV SCH ×2 (05:25→17:40)
[2023-06-26 05:55] LABS: Hematocrit 29.4 % (41.0-53.0); Mean Corpuscular Hgb Conc. 33.9 g/dL (32.0-36.0); Mean Corpuscular Volume 85.5 fL (80.0-100.0); Red Blood Cells 3.44 10^6/uL (4.5-5.90); Red Cell Distribution Width 14.2 % (11.8-14.3); White Blood Cell 13.7 10^3/uL (4.4-10.8)
[2023-06-26 06:04] LABS: Basophils % (manual) 0 (0.0-2.0); Blast Cells 0; Myelocytes % 0; Promyelocytes % 0; Reactive Lymphocytes 0
[2023-06-26 06:13] LABS: Alanine Aminotransferase 52 U/L (7-40); Albumin 2.7 g/dL (3.2-4.8); Alkaline Phosphatase 130 U/L (46-116); Anion Gap 7 (5-15); Aspartate Aminotransferase 36 U/L (13-40); BUN/Creatinine Ratio 20.1 (10.0-20.0); Calcium 8.3 mg/dL (8.7-10.4); Carbon Dioxide 23 mmol/L (20-30); Chloride 111 mmol/L (98-107); Glucose 170 mg/dL (74-106); Magnesium 2.1 mg/dL (1.6-2.6); Phosphorus 3.9 mg/dL (2.4-5.1); Potassium 3.5 mmol/L (3.5-5.1); Sodium 141 mmol/L (136-145)
[2023-06-26 06:14] LABS: Bilirubin, Total 0.3 mg/dL (0.2-1.0); Total Protein 4.8 g/dL (5.7-8.2)
[2023-06-26 06:29] LABS: Blood Urea Nitrogen 64 mg/dL (9-23)
[2023-06-26] MEDS: fentaNYL Drip 2500mCg/250mlNS 250 ML IV SCH ×2 (07:02→23:47)
[2023-06-26 07:30] LABS: Base Excess -3.9 mmol/L (-2.0-2.0)
[2023-06-26 07:45] LABS: Band Neutrophils % (manual) 12; Eosinophils % (manual) 1 (0-7); Lymphocytes % (manual) 10 (10.0-50.0); Metamyelocytes % 2; Monocytes % (manual) 12 (0-12); Platelet Estimate Adequate
[2023-06-26] MEDS: PROPOFOL 100 ML IV SCH (09:34)
[2023-06-26] MEDS: CEFEPIME 2GM/50ML NS 50 ML IV SCH ×2 (09:46→22:31)
[2023-06-26] MEDS: ENOXAPARIN SOD 30 MG/0.3 ML SYRINGE SC SCH (09:46)
[2023-06-26] MEDS: PANTOPRAZOLE 40 MG/10 ML VIAL INJ IV SCH (09:46)
[2023-06-26] MEDS: SODIUM CHLOR 0.9% PF (SALINE LOCK) 10ML VIAL/SYR IV SCH ×2 (09:46→21:32)
[2023-06-26] MEDS ORDERED: POTASSIUM CHL 20MEQ/100ML 100 ML IV ONE (11:15)
[2023-06-26] MEDS: MIDAZOLAM DRIP 50 mg/50mL 50 ML IV SCH (11:38)
[2023-06-26] MEDS: PHENYLEPHRINE INJ 80 MG in SODIUM CHL 0.9% 242 ML IV SCH (14:30)
[2023-06-26] MEDS: DOPamine 1600MCG/ML D5W 250 ML IV SCH (15:51)
[2023-06-26] MEDS ORDERED: TPN PER PHARMACY IV NR ×11 (20:00)
[2023-06-27] VITALS (112 sets, daily range): BP systolic 58–120; BP diastolic 43–70; PULSE 77–86; RESP 13–26; TEMP 98.1–99.3; O2SAT 93–100
[2023-06-27] MEDS: VASOPRESSIN 20 UNITS in SODIUM CHL 0.9% 99 ML IV SCH ×2 (03:01→14:08)
[2023-06-27 04:08] LABS: Basophils # (auto) 0 10 ^3/uL (0-0.2); Basophils % (auto) 0.3 % (0.0-2.0); Eosinophils # (auto) 0.2 10 ^3/uL (0-0.8); Eosinophils % (auto) 1.4 % (0.0-7.0); Hematocrit 30.6 % (41.0-53.0); Hemoglobin 10.3 g/dL (13.5-17.5); Lymphocytes # (auto) 0.8 10 ^3/uL (0.4-5.4); Mean Corpuscular Hgb Conc. 33.5 g/dL (32.0-36.0); Mean Corpuscular Volume 86.6 fL (80.0-100.0); Monocytes # (auto) 1.2 10 ^3/uL (0-1.3); Monocytes % (auto) 9.1 % (0.0-12.0); Neutrophils # (auto) 11.4 10 ^3/uL (1.6-8.6); Neutrophils % (auto) 83.2 % (37.0-80.0); Nucleated Red Blood Cells % 0.1 %; Red Blood Cells 3.54 10^6/uL (4.5-5.90); Red Cell Distribution Width 14.4 % (11.8-14.3); White Blood Cell 13.7 10^3/uL (4.4-10.8)
[2023-06-27 05:31] LABS: Chloride 110 mmol/L (98-107); Sodium 140 mmol/L (136-145)
[2023-06-27] MEDS: metroNIDAZOLE 500MG/100ML 100 ML IV SCH ×3 (05:33→21:59)
[2023-06-27 05:34] LABS: Anion Gap 8 (5-15); Carbon Dioxide 22 mmol/L (20-30)
[2023-06-27] MEDS: BUMETANIDE 2.5mg/10ml (0.25 mg/ml) INJ IV SCH (05:34)
[2023-06-27 05:35] LABS: Calcium 8.5 mg/dL (8.5-10.1)
[2023-06-27 05:39] LABS: Alkaline Phosphatase 113 U/L (46-116); Glucose 138 mg/dL (74-106)
[2023-06-27 05:40] LABS: BUN/Creatinine Ratio 18.6 (10.0-20.0); Blood Urea Nitrogen 69 mg/dL (9-23); Triglycerides 163 mg/dL (< 150)
[2023-06-27 05:41] LABS: Alanine Aminotransferase 43 U/L (7-40); Albumin 2.9 g/dL (3.2-4.8); Aspartate Aminotransferase 34 U/L (13-40)
[2023-06-27 05:42] LABS: Bilirubin, Total 0.4 mg/dL (0.2-1.0); Phosphorus 4.7 mg/dL (2.4-5.1); Total Protein 5.4 g/dL (5.7-8.2)
[2023-06-27 06:16] LABS: Magnesium 2.3 mg/dL (1.6-2.6)
[2023-06-27] MEDS: ACCU-CHEK COMFORT CURVE STRIP VI SCH ×4 (06:24→23:44)
[2023-06-27] MEDS: MIDAZOLAM DRIP 50 mg/50mL 50 ML IV SCH (06:24)
[2023-06-27] MEDS: InsuLIN REG 1unit/0.01ml Soln (100units/ml) SC SCH ×4 (06:25→23:45)
[2023-06-27 07:44] LABS: Base Excess -4.9 mmol/L (-2.0-2.0)
[2023-06-27] MEDS: PROPOFOL 100 ML IV SCH (09:45)
[2023-06-27] MEDS: CEFEPIME 2GM/50ML NS 50 ML IV SCH (10:29)
[2023-06-27] MEDS: PANTOPRAZOLE 40 MG/10 ML VIAL INJ IV SCH (10:29)
[2023-06-27] MEDS: ENOXAPARIN SOD 30 MG/0.3 ML SYRINGE SC SCH (10:29)
[2023-06-27] MEDS: SODIUM CHLOR 0.9% PF (SALINE LOCK) 10ML VIAL/SYR IV SCH ×2 (10:30→21:59)
[2023-06-27] MEDS: SOD CHL 0.45% 1,000 ML IV SCH ×2 (13:00→23:38)
[2023-06-27] MEDS: NOREPINEPHRINE BITARTRATE 32 MG in SODIUM CHL 0.9% 218 ML IV SCH (13:30)
[2023-06-27] MEDS: PHENYLEPHRINE INJ 80 MG in SODIUM CHL 0.9% 242 ML IV SCH (14:30)
[2023-06-27] MEDS: BUMETANIDE 1mg/4ml VIAL (0.25mg/ml) IV SCH (15:45)
[2023-06-27] MEDS: DOPamine 1600MCG/ML D5W 250 ML IV SCH (15:45)
[2023-06-27] MEDS: fentaNYL Drip 2500mCg/250mlNS 250 ML IV SCH (15:46)
[2023-06-27] MEDS ORDERED: TPN PER PHARMACY IV NR ×10 (20:00)
[2023-06-28] VITALS (86 sets, daily range): BP systolic 90–120; BP diastolic 46–65; PULSE 72–86; RESP 12–30; TEMP 98.1–99.5; O2SAT 88–97
[2023-06-28] MEDS: SOD CHL 0.45% 1,000 ML IV SCH (08:45)
[2023-06-28] MEDS: PROPOFOL 100 ML IV SCH (09:45)
[2023-06-28] MEDS: ENOXAPARIN SOD 40 MG/0.4 ML SYRINGE SC SCH (10:00)
[2023-06-28] MEDS: SODIUM CHLOR 0.9% PF (SALINE LOCK) 10ML VIAL/SYR IV SCH ×2 (10:00→23:07)
[2023-06-28] MEDS: CEFEPIME 2GM/50ML NS 50 ML IV SCH (10:00)
[2023-06-28] MEDS: PANTOPRAZOLE 40 MG/10 ML VIAL INJ IV SCH (10:00)
[2023-06-28] MEDS: BUMETANIDE 1mg/4ml VIAL (0.25mg/ml) IV SCH (10:00)
[2023-06-28 11:21] LABS: Base Excess -7.8 mmol/L (-2.0-2.0)
[2023-06-28] MEDS: ACCU-CHEK COMFORT CURVE STRIP VI SCH ×3 (12:00→23:04)
[2023-06-28] MEDS: InsuLIN REG 1unit/0.01ml Soln (100units/ml) SC SCH ×3 (12:00→22:00)
[2023-06-28] MEDS: VASOPRESSIN 20 UNITS in SODIUM CHL 0.9% 99 ML IV SCH ×2 (12:22→23:07)
[2023-06-28 12:42] LABS: Alanine Aminotransferase 29 U/L (7-40); Albumin 2.9 g/dL (3.2-4.8); Alkaline Phosphatase 114 U/L (46-116); Anion Gap 9 (5-15); Aspartate Aminotransferase 32 U/L (13-40); BUN/Creatinine Ratio 20.5 (10.0-20.0); Bilirubin, Total 0.3 mg/dL (0.2-1.0); Calcium 8.4 mg/dL (8.7-10.4); Carbon Dioxide 21 mmol/L (20-30); Chloride 107 mmol/L (98-107); Glucose 146 mg/dL (74-106); Magnesium 2.5 mg/dL (1.6-2.6); Phosphorus 5.1 mg/dL (2.4-5.1); Sodium 137 mmol/L (136-145); Total Protein 5.3 g/dL (5.7-8.2)
[2023-06-28] MEDS: NOREPINEPHRINE BITARTRATE 32 MG in SODIUM CHL 0.9% 218 ML IV SCH (13:30)
[2023-06-28 14:10] LABS: Blood Urea Nitrogen 91 mg/dL (9-23)
[2023-06-28] MEDS: PHENYLEPHRINE INJ 80 MG in SODIUM CHL 0.9% 242 ML IV SCH (14:30)
[2023-06-28] MEDS: metroNIDAZOLE 500MG/100ML 100 ML IV SCH ×2 (14:32→23:04)
[2023-06-28] MEDS: MIDAZOLAM DRIP 50 mg/50mL 50 ML IV SCH ×2 (14:33→23:06)
[2023-06-28] MEDS: DOPamine 1600MCG/ML D5W 250 ML IV SCH ×2 (15:00→17:36)
[2023-06-28 16:34] LABS: White Blood Cell 14.4 10^3/uL (4.4-10.8)
[2023-06-28 16:35] LABS: Basophils # (auto) 0.1 10 ^3/uL (0-0.2); Basophils % (auto) 0.6 % (0.0-2.0); Eosinophils # (auto) 0.2 10 ^3/uL (0-0.8); Eosinophils % (auto) 1.7 % (0.0-7.0); Lymphocytes # (auto) 0.9 10 ^3/uL (0.4-5.4); Lymphocytes % (auto) 6.1 % (10.0-50.0); Monocytes % (auto) 6.7 % (0.0-12.0); Neutrophils # (auto) 12.2 10 ^3/uL (1.6-8.6); Neutrophils % (auto) 84.9 % (37.0-80.0); Red Blood Cells 3.51 10^6/uL (4.5-5.90)
[2023-06-28 16:36] LABS: Hematocrit 30.4 % (41.0-53.0); Hemoglobin 9.9 g/dL (13.5-17.5); Mean Corpuscular Hemoglobin 28.3 pg (28.0-32.0); Mean Corpuscular Hgb Conc. 32.7 g/dL (32.0-36.0); Mean Corpuscular Volume 86.5 fL (80.0-100.0); Red Cell Distribution Width 14.9 % (11.8-14.3)
[2023-06-28] MEDS: BUMETANIDE INJECTION 12.5 MG in GIVE UN-DILUTED 0 ML IV SCH (17:30)
[2023-06-28] MEDS ORDERED: TPN PER PHARMACY IV NR ×11 (20:00)
[2023-06-28] MEDS: fentaNYL Drip 2500mCg/250mlNS 250 ML IV SCH (21:04)
[2023-06-29] VITALS (106 sets, daily range): BP systolic 105–159; BP diastolic 54–75; PULSE 71–94; RESP 9–30; TEMP 98.1–100; O2SAT 92–100
[2023-06-29] MEDS: ACCU-CHEK COMFORT CURVE STRIP VI SCH ×4 (05:28→23:06)
[2023-06-29] MEDS: InsuLIN REG 1unit/0.01ml Soln (100units/ml) SC SCH ×4 (05:28→23:06)
[2023-06-29 05:29] LABS: Alanine Aminotransferase 23 U/L (7-40); Albumin 2.9 g/dL (3.2-4.8); Alkaline Phosphatase 102 U/L (46-116); Anion Gap 9 (5-15); Aspartate Aminotransferase 31 U/L (13-40); BUN/Creatinine Ratio 23.1 (10.0-20.0); Bilirubin, Total 0.3 mg/dL (0.2-1.0); Calcium 8.3 mg/dL (8.7-10.4); Carbon Dioxide 21 mmol/L (20-30); Chloride 106 mmol/L (98-107); Glucose 139 mg/dL (74-106); Magnesium 2.4 mg/dL (1.6-2.6); Phosphorus 5.6 mg/dL (2.4-5.1); Sodium 136 mmol/L (136-145); Total Protein 5.4 g/dL (5.7-8.2)
[2023-06-29] MEDS: metroNIDAZOLE 500MG/100ML 100 ML IV SCH ×3 (05:37→21:02)
[2023-06-29 05:57] LABS: Blood Urea Nitrogen 107 mg/dL (9-23)
[2023-06-29 08:05] LABS: Basophils # (auto) 0.1 10 ^3/uL (0-0.2); Basophils % (auto) 0.5 % (0.0-2.0); Eosinophils # (auto) 0.2 10 ^3/uL (0-0.8); Eosinophils % (auto) 1.6 % (0.0-7.0); Hematocrit 29.3 % (41.0-53.0); Hemoglobin 9.6 g/dL (13.5-17.5); Lymphocytes # (auto) 0.7 10 ^3/uL (0.4-5.4); Lymphocytes % (auto) 4.7 % (10.0-50.0); Mean Corpuscular Hemoglobin 28.5 pg (28.0-32.0); Mean Corpuscular Hgb Conc. 32.7 g/dL (32.0-36.0); Mean Corpuscular Volume 87.2 fL (80.0-100.0); Monocytes # (auto) 0.9 10 ^3/uL (0-1.3); Monocytes % (auto) 6.3 % (0.0-12.0); Neutrophils # (auto) 12.6 10 ^3/uL (1.6-8.6); Neutrophils % (auto) 86.9 % (37.0-80.0); Nucleated Red Blood Cells % 0.1 %; Red Blood Cells 3.36 10^6/uL (4.5-5.90); Red Cell Distribution Width 14.6 % (11.8-14.3); White Blood Cell 14.5 10^3/uL (4.4-10.8)
[2023-06-29 09:22] LABS: Base Excess -5.5 mmol/L (-2.0-2.0)
[2023-06-29] MEDS: PROPOFOL 100 ML IV SCH ×2 (09:40→22:57)
[2023-06-29] MEDS: PANTOPRAZOLE 40 MG/10 ML VIAL INJ IV SCH (10:09)
[2023-06-29] MEDS: CEFEPIME 2GM/50ML NS 50 ML IV SCH (10:09)
[2023-06-29] MEDS: BUMETANIDE INJECTION 12.5 MG in GIVE UN-DILUTED 0 ML IV SCH ×2 (10:10→19:25)
[2023-06-29] MEDS: ENOXAPARIN SOD 40 MG/0.4 ML SYRINGE SC SCH (10:10)
[2023-06-29] MEDS: SODIUM CHLOR 0.9% PF (SALINE LOCK) 10ML VIAL/SYR IV SCH ×2 (10:10→21:02)
[2023-06-29] MEDS: VASOPRESSIN 20 UNITS in SODIUM CHL 0.9% 99 ML IV SCH ×2 (10:36→21:43)
[2023-06-29] MEDS: MIDAZOLAM DRIP 50 mg/50mL 50 ML IV SCH ×2 (11:34→19:24)
[2023-06-29] MEDS: fentaNYL Drip 2500mCg/250mlNS 250 ML IV SCH (11:48)
[2023-06-29] MEDS: IPRATROPIUM BROM 0.5 MG/2.5ML INH SOL NEB SCH ×2 (12:22→18:59)
[2023-06-29] MEDS: ALBUTEROL SULF 2.5 MG/0.5ML(0.5%) NEB SOLN NEB SCH ×2 (12:22→18:59)
[2023-06-29] MEDS: NOREPINEPHRINE BITARTRATE 32 MG in SODIUM CHL 0.9% 218 ML IV SCH (13:30)
[2023-06-29] MEDS: DOPamine 1600MCG/ML D5W 250 ML IV SCH (19:25)
[2023-06-29] MEDS ORDERED: TPN PER PHARMACY IV NR ×10 (20:00)
[2023-06-30] VITALS (110 sets, daily range): BP systolic 91–155; BP diastolic 32–77; PULSE 61–95; RESP 10–31; TEMP 96.3–99.7; O2SAT 92–100
[2023-06-30] MEDS: IPRATROPIUM BROM 0.5 MG/2.5ML INH SOL NEB SCH ×4 (00:32→19:01)
[2023-06-30] MEDS: ALBUTEROL SULF 2.5 MG/0.5ML(0.5%) NEB SOLN NEB SCH ×4 (00:33→19:01)
[2023-06-30] MEDS: fentaNYL Drip 2500mCg/250mlNS 250 ML IV SCH ×2 (00:35→14:51)
[2023-06-30] MEDS: PROPOFOL 100 ML IV SCH ×3 (02:37→22:18)
[2023-06-30 04:03] LABS: Basophils # (auto) 0 10 ^3/uL (0-0.2); Basophils % (auto) 0.4 % (0.0-2.0); Eosinophils # (auto) 0.2 10 ^3/uL (0-0.8); Eosinophils % (auto) 1.8 % (0.0-7.0); Hematocrit 26.7 % (41.0-53.0); Lymphocytes % (auto) 8.7 % (10.0-50.0); Mean Corpuscular Hemoglobin 29.3 pg (28.0-32.0); Mean Corpuscular Hgb Conc. 33.9 g/dL (32.0-36.0); Mean Corpuscular Volume 86.4 fL (80.0-100.0); Monocytes # (auto) 0.8 10 ^3/uL (0-1.3); Monocytes % (auto) 6.8 % (0.0-12.0); Neutrophils # (auto) 9.2 10 ^3/uL (1.6-8.6); Neutrophils % (auto) 82.3 % (37.0-80.0); Nucleated Red Blood Cells % 0.1 %; Red Blood Cells 3.09 10^6/uL (4.5-5.90); Red Cell Distribution Width 14.5 % (11.8-14.3); White Blood Cell 11.2 10^3/uL (4.4-10.8)
[2023-06-30 04:17] LABS: Alanine Aminotransferase 17 U/L (7-40); Albumin 2.5 g/dL (3.2-4.8); Alkaline Phosphatase 87 U/L (46-116); Anion Gap 10 (5-15); Aspartate Aminotransferase 24 U/L (13-40); BUN/Creatinine Ratio 26.6 (10.0-20.0); Calcium 7.8 mg/dL (8.7-10.4); Carbon Dioxide 22 mmol/L (20-30); Chloride 105 mmol/L (98-107); Glucose 219 mg/dL (74-106); Magnesium 2.3 mg/dL (1.6-2.6); Potassium 3.3 mmol/L (3.5-5.1); Sodium 137 mmol/L (136-145)
[2023-06-30 04:18] LABS: Bilirubin, Total 0.3 mg/dL (0.2-1.0); Total Protein 4.8 g/dL (5.7-8.2)
[2023-06-30 04:24] LABS: Blood Urea Nitrogen 112 mg/dL (9-23)
[2023-06-30] MEDS: metroNIDAZOLE 500MG/100ML 100 ML IV SCH ×3 (05:50→21:14)
[2023-06-30] MEDS: MIDAZOLAM DRIP 50 mg/50mL 50 ML IV SCH ×3 (05:54→22:18)
[2023-06-30] MEDS: ACCU-CHEK COMFORT CURVE STRIP VI SCH ×3 (06:09→17:55)
[2023-06-30] MEDS: InsuLIN REG 1unit/0.01ml Soln (100units/ml) SC SCH ×3 (06:10→17:56)
[2023-06-30 06:38] LABS: Base Excess -4.8 mmol/L (-2.0-2.0)
[2023-06-30] MEDS: VASOPRESSIN 20 UNITS in SODIUM CHL 0.9% 99 ML IV SCH ×2 (08:50→19:57)
[2023-06-30] MEDS ORDERED: MEPERIDINE HCL (25 MG/ML) 1ML VIAL IM PRN (09:00)
[2023-06-30] MEDS ORDERED: POTASSIUM CHLORIDE 40 MEQ, LIDOCAINE 1% (LOCAL ANESTH.) 4 ML in SODIUM CHL 0.9% 250 ML IV ONE (09:00)
[2023-06-30] MEDS: PANTOPRAZOLE 40 MG/10 ML VIAL INJ IV SCH (10:15)
[2023-06-30] MEDS: CEFEPIME 2GM/50ML NS 50 ML IV SCH (10:15)
[2023-06-30] MEDS: ENOXAPARIN SOD 40 MG/0.4 ML SYRINGE SC SCH (10:15)
[2023-06-30] MEDS: SODIUM CHLOR 0.9% PF (SALINE LOCK) 10ML VIAL/SYR IV SCH ×2 (10:15→21:14)
[2023-06-30] MEDS: ACETYLCYSTEINE 10 %(100MG/ML) SOL 4ML NEB SCH ×2 (11:37→19:02)
[2023-06-30] MEDS: MICAFUNGIN SODIUM 100 MG in SODIUM CHL 0.9% 100 ML IV SCH (12:46)
[2023-06-30] MEDS: NOREPINEPHRINE BITARTRATE 32 MG in SODIUM CHL 0.9% 218 ML IV SCH (13:30)
[2023-06-30] MEDS ORDERED: TPN PER PHARMACY IV NR ×9 (20:00)
[2023-07-01] VITALS (101 sets, daily range): BP systolic 105–148; BP diastolic 52–82; PULSE 83–94; RESP 13–32; TEMP 97.5–99.5; O2SAT 92–100
[2023-07-01] MEDS: IPRATROPIUM BROM 0.5 MG/2.5ML INH SOL NEB SCH ×4 (00:45→18:15)
[2023-07-01] MEDS: ACETYLCYSTEINE 10 %(100MG/ML) SOL 4ML NEB SCH ×4 (00:45→18:15)
[2023-07-01] MEDS: ALBUTEROL SULF 2.5 MG/0.5ML(0.5%) NEB SOLN NEB SCH ×4 (00:45→18:15)
[2023-07-01] MEDS: ACCU-CHEK COMFORT CURVE STRIP VI SCH ×5 (00:59→18:22)
[2023-07-01] MEDS: InsuLIN REG 1unit/0.01ml Soln (100units/ml) SC SCH ×4 (01:00→18:25)
[2023-07-01 04:09] LABS: Basophils # (auto) 0.1 10 ^3/uL (0-0.2); Basophils % (auto) 0.5 % (0.0-2.0); Eosinophils # (auto) 0.2 10 ^3/uL (0-0.8); Eosinophils % (auto) 1.7 % (0.0-7.0); Hematocrit 31.3 % (41.0-53.0); Hemoglobin 10.1 g/dL (13.5-17.5); Lymphocytes # (auto) 0.8 10 ^3/uL (0.4-5.4); Lymphocytes % (auto) 6.3 % (10.0-50.0); Mean Corpuscular Hgb Conc. 32.1 g/dL (32.0-36.0); Mean Corpuscular Volume 87.3 fL (80.0-100.0); Monocytes # (auto) 0.9 10 ^3/uL (0-1.3); Monocytes % (auto) 7.1 % (0.0-12.0); Neutrophils # (auto) 10.4 10 ^3/uL (1.6-8.6); Neutrophils % (auto) 84.4 % (37.0-80.0); Red Blood Cells 3.59 10^6/uL (4.5-5.90); Red Cell Distribution Width 14.7 % (11.8-14.3); White Blood Cell 12.3 10^3/uL (4.4-10.8)
[2023-07-01 04:31] LABS: Alanine Aminotransferase 17 U/L (7-40); Albumin 3.1 g/dL (3.2-4.8); Alkaline Phosphatase 100 U/L (46-116); Anion Gap 10 (5-15); Aspartate Aminotransferase 31 U/L (13-40); BUN/Creatinine Ratio 25.3 (10.0-20.0); Bilirubin, Total 0.5 mg/dL (0.2-1.0); Calcium 8.5 mg/dL (8.7-10.4); Carbon Dioxide 22 mmol/L (20-30); Chloride 107 mmol/L (98-107); Glucose 154 mg/dL (74-106); Magnesium 2.5 mg/dL (1.6-2.6); Phosphorus 7.2 mg/dL (2.4-5.1); Potassium 4.2 mmol/L (3.5-5.1); Sodium 139 mmol/L (136-145)
[2023-07-01 04:32] LABS: Total Protein 5.8 g/dL (5.7-8.2)
[2023-07-01] MEDS: fentaNYL Drip 2500mCg/250mlNS 250 ML IV SCH ×2 (04:34→18:15)
[2023-07-01 04:47] LABS: Blood Urea Nitrogen 112 mg/dL (9-23)
[2023-07-01] MEDS: metroNIDAZOLE 500MG/100ML 100 ML IV SCH ×3 (05:34→21:21)
[2023-07-01] MEDS: MIDAZOLAM DRIP 50 mg/50mL 50 ML IV SCH ×2 (06:35→15:39)
[2023-07-01] MEDS: DOPamine 1600MCG/ML D5W 250 ML IV SCH (06:57)
[2023-07-01] MEDS: VASOPRESSIN 20 UNITS in SODIUM CHL 0.9% 99 ML IV SCH ×2 (07:04→18:11)
[2023-07-01 07:27] LABS: Base Excess -4.2 mmol/L (-2.0-2.0)
[2023-07-01] MEDS: MICAFUNGIN SODIUM 100 MG in SODIUM CHL 0.9% 100 ML IV SCH (09:34)
[2023-07-01] MEDS: SODIUM CHLOR 0.9% PF (SALINE LOCK) 10ML VIAL/SYR IV SCH ×2 (09:34→21:21)
[2023-07-01] MEDS: PANTOPRAZOLE 40 MG/10 ML VIAL INJ IV SCH (09:34)
[2023-07-01] MEDS: CEFEPIME 2GM/50ML NS 50 ML IV SCH (09:34)
[2023-07-01] MEDS: ENOXAPARIN SOD 40 MG/0.4 ML SYRINGE SC SCH (09:34)
[2023-07-01] MEDS: NOREPINEPHRINE BITARTRATE 32 MG in SODIUM CHL 0.9% 218 ML IV SCH (13:30)
[2023-07-01] MEDS ORDERED: BUMETANIDE 2.5mg/10ml (0.25 mg/ml) INJ IV ONE (15:45)
[2023-07-01] MEDS ORDERED: TPN PER PHARMACY IV NR ×9 (20:00)
[2023-07-02] VITALS (107 sets, daily range): BP systolic 121–183; BP diastolic 58–95; PULSE 80–119; RESP 13–30; TEMP 98.4–99.3; O2SAT 91–100
[2023-07-02] MEDS: IPRATROPIUM BROM 0.5 MG/2.5ML INH SOL NEB SCH ×4 (00:12→18:53)
[2023-07-02] MEDS: ALBUTEROL SULF 2.5 MG/0.5ML(0.5%) NEB SOLN NEB SCH ×4 (00:12→18:53)
[2023-07-02 04:50] LABS: Basophils # (auto) 0.1 10 ^3/uL (0-0.2); Eosinophils # (auto) 0.3 10 ^3/uL (0-0.8); Eosinophils % (auto) 2.9 % (0.0-7.0); Hematocrit 27.4 % (41.0-53.0); Hemoglobin 9.2 g/dL (13.5-17.5); Lymphocytes # (auto) 0.7 10 ^3/uL (0.4-5.4); Mean Corpuscular Hemoglobin 28.5 pg (28.0-32.0); Mean Corpuscular Hgb Conc. 33.7 g/dL (32.0-36.0); Mean Corpuscular Volume 84.6 fL (80.0-100.0); Monocytes # (auto) 0.8 10 ^3/uL (0-1.3); Monocytes % (auto) 8.4 % (0.0-12.0); Neutrophils # (auto) 7.9 10 ^3/uL (1.6-8.6); Neutrophils % (auto) 80.7 % (37.0-80.0); Red Blood Cells 3.24 10^6/uL (4.5-5.90); Red Cell Distribution Width 14.5 % (11.8-14.3); White Blood Cell 9.7 10^3/uL (4.4-10.8)
[2023-07-02] MEDS: VASOPRESSIN 20 UNITS in SODIUM CHL 0.9% 99 ML IV SCH (04:51)
[2023-07-02 04:54] LABS: Alanine Aminotransferase 14 U/L (7-40); Alkaline Phosphatase 89 U/L (46-116); Anion Gap 11 (5-15); Aspartate Aminotransferase 29 U/L (13-40); BUN/Creatinine Ratio 23.4 (10.0-20.0); Calcium 8.4 mg/dL (8.7-10.4); Carbon Dioxide 20 mmol/L (20-30); Chloride 107 mmol/L (98-107); Glucose 174 mg/dL (74-106); INR 1.31 (0.9-1.15); Magnesium 2.7 mg/dL (1.6-2.6); Partial Thromboplastin Time 32.8 SEC (24.5-34.5); Potassium 4.1 mmol/L (3.5-5.1); Prothrombin Time 13.5 sec (9.3-11.8); Sodium 138 mmol/L (136-145)
[2023-07-02 04:55] LABS: Bilirubin, Total 0.6 mg/dL (0.2-1.0); Phosphorus 7.5 mg/dL (2.4-5.1); Total Protein 5.7 g/dL (5.7-8.2)
[2023-07-02 05:18] LABS: Blood Urea Nitrogen 110 mg/dL (9-23)
[2023-07-02] MEDS: metroNIDAZOLE 500MG/100ML 100 ML IV SCH ×3 (05:21→21:18)
[2023-07-02] MEDS: ACCU-CHEK COMFORT CURVE STRIP VI SCH ×4 (05:23→23:15)
[2023-07-02] MEDS: InsuLIN REG 1unit/0.01ml Soln (100units/ml) SC SCH ×6 (05:26→23:17)
[2023-07-02 08:45] LABS: Base Excess -3.1 mmol/L (-2.0-2.0)
[2023-07-02] MEDS: CEFEPIME 2GM/50ML NS 50 ML IV SCH (09:11)
[2023-07-02] MEDS: SODIUM CHLOR 0.9% PF (SALINE LOCK) 10ML VIAL/SYR IV SCH ×2 (09:12→21:19)
[2023-07-02] MEDS: DOPamine 1600MCG/ML D5W 250 ML IV SCH (09:12)
[2023-07-02] MEDS: PANTOPRAZOLE 40 MG/10 ML VIAL INJ IV SCH (09:12)
[2023-07-02] MEDS: MICAFUNGIN SODIUM 100 MG in SODIUM CHL 0.9% 100 ML IV SCH (09:12)
[2023-07-02] MEDS: fentaNYL Drip 2500mCg/250mlNS 250 ML IV SCH (09:19)
[2023-07-02] MEDS: PROPOFOL 100 ML IV SCH (09:45)
[2023-07-02] MEDS: ENOXAPARIN SOD 40 MG/0.4 ML SYRINGE SC SCH (10:00)
[2023-07-02] MEDS ORDERED: BUMETANIDE 2.5mg/10ml (0.25 mg/ml) INJ IV ONE (12:00)
[2023-07-02] MEDS ORDERED: Nepro With Carb Steady 1 Liter Bottle GT SCH (12:00)
[2023-07-02] MEDS: NOREPINEPHRINE BITARTRATE 32 MG in SODIUM CHL 0.9% 218 ML IV SCH (13:30)
[2023-07-02] MEDS: FUROSEMIDE INJECTION 100 MG in SODIUM CHL 0.9% 100 ML IV SCH ×3 (15:49→20:37)
[2023-07-02] MEDS ORDERED: BUMETANIDE 2.5mg/10ml (0.25 mg/ml) INJ IV SCH (18:00)
[2023-07-02] MEDS: MIDAZOLAM DRIP 50 mg/50mL 50 ML IV SCH (19:45)
[2023-07-02] MEDS ORDERED: TPN PER PHARMACY IV NR ×10 (20:00)
[2023-07-02] MEDS ORDERED: dilTIAZem 25 MG/5 ML VIAL IV ONE (21:45)
[2023-07-03] VITALS (110 sets, daily range): BP systolic 113–173; BP diastolic 56–85; PULSE 87–139; RESP 11–31; TEMP 97–99.5; O2SAT 95–100
[2023-07-03] MEDS: IPRATROPIUM BROM 0.5 MG/2.5ML INH SOL NEB SCH ×4 (00:11→18:34)
[2023-07-03] MEDS: ALBUTEROL SULF 2.5 MG/0.5ML(0.5%) NEB SOLN NEB SCH ×4 (00:11→18:34)
[2023-07-03] MEDS: FUROSEMIDE INJECTION 100 MG in SODIUM CHL 0.9% 100 ML IV SCH ×5 (02:09→23:44)
[2023-07-03] MEDS: fentaNYL Drip 2500mCg/250mlNS 250 ML IV SCH ×2 (04:07→20:00)
[2023-07-03 04:46] LABS: Hemoglobin 9.8 g/dL (13.5-17.5); Lymphocytes # (auto) 0.6 10 ^3/uL (0.4-5.4); Neutrophils # (auto) 8.1 10 ^3/uL (1.6-8.6)
[2023-07-03 04:48] LABS: Basophils # (auto) 0 10 ^3/uL (0-0.2); Basophils % (auto) 0.5 % (0.0-2.0); Eosinophils # (auto) 0.2 10 ^3/uL (0-0.8); Eosinophils % (auto) 2.2 % (0.0-7.0); Hematocrit 29.2 % (41.0-53.0); Lymphocytes % (auto) 6.3 % (10.0-50.0); Mean Corpuscular Hemoglobin 28.6 pg (28.0-32.0); Mean Corpuscular Hgb Conc. 33.5 g/dL (32.0-36.0); Mean Corpuscular Volume 85.5 fL (80.0-100.0); Monocytes # (auto) 0.8 10 ^3/uL (0-1.3); Monocytes % (auto) 7.8 % (0.0-12.0); Neutrophils % (auto) 83.2 % (37.0-80.0); Red Blood Cells 3.42 10^6/uL (4.5-5.90); Red Cell Distribution Width 14.3 % (11.8-14.3); White Blood Cell 9.7 10^3/uL (4.4-10.8)
[2023-07-03 05:07] LABS: Alanine Aminotransferase 17 U/L (7-40); Alkaline Phosphatase 101 U/L (46-116); Anion Gap 10 (5-15); Aspartate Aminotransferase 37 U/L (13-40); BUN/Creatinine Ratio 28.2 (10.0-20.0); Bilirubin, Total 0.7 mg/dL (0.2-1.0); Calcium 8.7 mg/dL (8.7-10.4); Carbon Dioxide 26 mmol/L (20-30); Chloride 105 mmol/L (98-107); Glucose 192 mg/dL (74-106); Phosphorus 7.1 mg/dL (2.4-5.1); Potassium 3.8 mmol/L (3.5-5.1); Sodium 141 mmol/L (136-145); Total Protein 5.8 g/dL (5.7-8.2)
[2023-07-03 05:10] LABS: Blood Urea Nitrogen 127 mg/dL (9-23)
[2023-07-03 05:19] LABS: Triglycerides 153 mg/dL (< 150)
[2023-07-03] MEDS: ACCU-CHEK COMFORT CURVE STRIP VI SCH ×2 (05:38→13:23)
[2023-07-03] MEDS: metroNIDAZOLE 500MG/100ML 100 ML IV SCH ×3 (05:39→21:27)
[2023-07-03] MEDS: InsuLIN REG 1unit/0.01ml Soln (100units/ml) SC SCH ×2 (05:42→13:38)
[2023-07-03 07:42] LABS: Base Excess 0.5 mmol/L (-2.0-2.0)
[2023-07-03] MEDS: PROPOFOL 100 ML IV SCH (09:45)
[2023-07-03] MEDS: ENOXAPARIN SOD 40 MG/0.4 ML SYRINGE SC SCH (10:00)
[2023-07-03] MEDS: CEFEPIME 2GM/50ML NS 50 ML IV SCH (10:05)
[2023-07-03] MEDS: PANTOPRAZOLE 40 MG/10 ML VIAL INJ IV SCH (10:05)
[2023-07-03] MEDS: MICAFUNGIN SODIUM 100 MG in SODIUM CHL 0.9% 100 ML IV SCH (10:05)
[2023-07-03] MEDS: SODIUM CHLOR 0.9% PF (SALINE LOCK) 10ML VIAL/SYR IV SCH ×2 (10:05→21:27)
[2023-07-03] MEDS: CALCIUM ACETATE 667 MG CAP PO SCH ×3 (11:45→21:27)
[2023-07-03] MEDS ORDERED: AMIODARONE BOLUS KIT 100 ML IV ONE (13:15)
[2023-07-03] MEDS ORDERED: AMIODARONE 450mg/250ml AE 250 ML IV SCH (13:30)
[2023-07-03] MEDS: NOREPINEPHRINE BITARTRATE 32 MG in SODIUM CHL 0.9% 218 ML IV SCH (13:30)
[2023-07-03] MEDS: ALBUMIN 25% 50 ML IV SCH ×2 (15:47→18:57)
[2023-07-03 18:51] LABS: Potassium 3.4 mmol/L (3.5-5.1)
[2023-07-03 18:57] LABS: Magnesium 2.3 mg/dL (1.6-2.6)
[2023-07-03] MEDS: MIDAZOLAM DRIP 50 mg/50mL 50 ML IV SCH (19:45)
[2023-07-03] MEDS: AMIODARONE 450mg/250ml AE 250 ML IV SCH (19:56)
[2023-07-03] MEDS ORDERED: TPN PER PHARMACY IV NR ×9 (20:00)
[2023-07-03] MEDS: POTASSIUM CHL 20MEQ/100ML 100 ML IV SCH ×2 (21:30→23:42)
[2023-07-04] VITALS (111 sets, daily range): BP systolic 100–175; BP diastolic 60–114; PULSE 67–99; RESP 13–31; TEMP 89.1–100; O2SAT 88–99
[2023-07-04] MEDS: IPRATROPIUM BROM 0.5 MG/2.5ML INH SOL NEB SCH ×4 (00:04→18:23)
[2023-07-04] MEDS: ALBUTEROL SULF 2.5 MG/0.5ML(0.5%) NEB SOLN NEB SCH ×4 (00:05→18:23)
[2023-07-04] MEDS: POTASSIUM CHL 20MEQ/100ML 100 ML IV SCH (02:01)
[2023-07-04 02:36] LABS: Potassium 3.7 mmol/L (3.5-5.1)
[2023-07-04 02:43] LABS: Magnesium 2.2 mg/dL (1.6-2.6)
[2023-07-04] MEDS: ALBUMIN 25% 50 ML IV SCH (03:13)
[2023-07-04] MEDS: FUROSEMIDE INJECTION 100 MG in SODIUM CHL 0.9% 100 ML IV SCH ×3 (04:49→18:35)
[2023-07-04] MEDS: metroNIDAZOLE 500MG/100ML 100 ML IV SCH ×3 (05:13→22:26)
[2023-07-04] MEDS: CALCIUM ACETATE 667 MG CAP PO SCH ×3 (05:14→21:48)
[2023-07-04 05:20] LABS: Alanine Aminotransferase 26 U/L (7-40); Albumin 3.6 g/dL (3.2-4.8); Alkaline Phosphatase 111 U/L (46-116); Aspartate Aminotransferase 65 U/L (13-40); BUN/Creatinine Ratio 29.8 (10.0-20.0); Calcium 9.6 mg/dL (8.5-10.1); Chloride 102 mmol/L (98-107); Glucose 180 mg/dL (74-106); Potassium 4.2 mmol/L (3.5-5.1)
[2023-07-04 05:21] LABS: Bilirubin, Total 1.4 mg/dL (0.2-1.0); Phosphorus 7.1 mg/dL (2.4-5.1); Total Protein 6.8 g/dL (5.7-8.2)
[2023-07-04 05:28] LABS: Carbon Dioxide 28 mmol/L (20-30)
[2023-07-04 05:32] LABS: Blood Urea Nitrogen 103 mg/dL (9-23)
[2023-07-04 05:53] LABS: Hemoglobin 10.3 g/dL (13.5-17.5); Red Blood Cells 3.43 10^6/uL (4.5-5.90); White Blood Cell 12.8 10^3/uL (4.4-10.8)
[2023-07-04 05:56] LABS: Basophils # (auto) 0.2 10 ^3/uL (0-0.2); Basophils % (auto) 1.4 % (0.0-2.0); Eosinophils # (auto) 0.7 10 ^3/uL (0-0.8); Eosinophils % (auto) 5.6 % (0.0-7.0); Hematocrit 29.6 % (41.0-53.0); Lymphocytes # (auto) 0.9 10 ^3/uL (0.4-5.4); Lymphocytes % (auto) 6.7 % (10.0-50.0); Mean Corpuscular Hemoglobin 30.1 pg (28.0-32.0); Mean Corpuscular Hgb Conc. 34.9 g/dL (32.0-36.0); Mean Corpuscular Volume 86.1 fL (80.0-100.0); Monocytes # (auto) 1.1 10 ^3/uL (0-1.3); Monocytes % (auto) 8.5 % (0.0-12.0); Neutrophils % (auto) 77.8 % (37.0-80.0); Nucleated Red Blood Cells % 0.1 %; Red Cell Distribution Width 14.4 % (11.8-14.3)
[2023-07-04 06:39] LABS: Magnesium 2.4 mg/dL (1.6-2.6)
[2023-07-04 06:53] LABS: Anion Gap 13 (5-15); Sodium 143 mmol/L (136-145)
[2023-07-04 08:17] LABS: Base Excess 8.2 mmol/L (-2.0-2.0)
[2023-07-04] MEDS: MICAFUNGIN SODIUM 100 MG in SODIUM CHL 0.9% 100 ML IV SCH (08:54)
[2023-07-04] MEDS: AMIODARONE 450mg/250ml AE 250 ML IV SCH (09:08)
[2023-07-04] MEDS: fentaNYL Drip 2500mCg/250mlNS 250 ML IV SCH (09:17)
[2023-07-04] MEDS: PROPOFOL 100 ML IV SCH (09:18)
[2023-07-04] MEDS: ENOXAPARIN SOD 40 MG/0.4 ML SYRINGE SC SCH (10:00)
[2023-07-04] MEDS: CEFEPIME 2GM/50ML NS 50 ML IV SCH (10:30)
[2023-07-04] MEDS: PANTOPRAZOLE 40 MG/10 ML VIAL INJ IV SCH (10:30)
[2023-07-04] MEDS: SODIUM CHLOR 0.9% PF (SALINE LOCK) 10ML VIAL/SYR IV SCH ×2 (10:30→21:48)
[2023-07-04] MEDS: LABETALOL HCL 5 MG/ML 4ML SYRINGE IV PRN ×2 (10:38→17:38)
[2023-07-04] MEDS: NOREPINEPHRINE BITARTRATE 32 MG in SODIUM CHL 0.9% 218 ML IV SCH (13:30)
[2023-07-04 13:44] LABS: Potassium 3.5 mmol/L (3.5-5.1)
[2023-07-04 13:50] LABS: Magnesium 2.2 mg/dL (1.6-2.6)
[2023-07-04 18:38] LABS: Potassium 3.3 mmol/L (3.5-5.1)
[2023-07-04 18:45] LABS: Magnesium 2.1 mg/dL (1.6-2.6)
[2023-07-04] MEDS: MIDAZOLAM DRIP 50 mg/50mL 50 ML IV SCH (19:45)
[2023-07-04] MEDS ORDERED: POTASSIUM CHL 20MEQ/100ML 100 ML IV ONE (21:30)
[2023-07-05] VITALS (110 sets, daily range): BP systolic 105–186; BP diastolic 55–101; PULSE 50–103; RESP 12–34; TEMP 96.4–102; O2SAT 94–99
[2023-07-05] MEDS: ALBUTEROL SULF 2.5 MG/0.5ML(0.5%) NEB SOLN NEB SCH ×4 (00:25→19:17)
[2023-07-05] MEDS: IPRATROPIUM BROM 0.5 MG/2.5ML INH SOL NEB SCH ×4 (00:25→19:17)
[2023-07-05 00:54] LABS: Potassium 3.1 mmol/L (3.5-5.1)
[2023-07-05] MEDS ORDERED: POTASSIUM CHL 20MEQ/100ML 100 ML IV ONE ×2 (01:00→04:00)
[2023-07-05] MEDS: LABETALOL HCL 5 MG/ML 4ML SYRINGE IV PRN (01:02)
[2023-07-05] MEDS: AMIODARONE 450mg/250ml AE 250 ML IV SCH ×3 (01:30→18:23)
[2023-07-05] MEDS: FUROSEMIDE INJECTION 100 MG in SODIUM CHL 0.9% 100 ML IV SCH (01:30)
[2023-07-05] MEDS: PROPOFOL 100 ML IV SCH ×2 (01:44→20:52)
[2023-07-05 06:02] LABS: Basophils # (auto) 0.1 10 ^3/uL (0-0.2); Eosinophils # (auto) 0.1 10 ^3/uL (0-0.8); Eosinophils % (auto) 0.6 % (0.0-7.0); Neutrophils # (auto) 8.2 10 ^3/uL (1.6-8.6)
[2023-07-05 06:05] LABS: Basophils % (auto) 1.1 % (0.0-2.0); Hematocrit 27.6 % (41.0-53.0); Hemoglobin 9.4 g/dL (13.5-17.5); Lymphocytes % (auto) 9.1 % (10.0-50.0); Mean Corpuscular Hemoglobin 28.7 pg (28.0-32.0); Mean Corpuscular Volume 84.3 fL (80.0-100.0); Monocytes # (auto) 1.3 10 ^3/uL (0-1.3); Monocytes % (auto) 12.2 % (0.0-12.0); Red Blood Cells 3.27 10^6/uL (4.5-5.90); Red Cell Distribution Width 14.5 % (11.8-14.3); White Blood Cell 10.6 10^3/uL (4.4-10.8)
[2023-07-05] MEDS: metroNIDAZOLE 500MG/100ML 100 ML IV SCH ×3 (06:09→21:11)
[2023-07-05 06:12] LABS: Alanine Aminotransferase 24 U/L (7-40); Albumin 3.7 g/dL (3.2-4.8); Alkaline Phosphatase 117 U/L (46-116); Calcium 10.5 mg/dL (8.7-10.4); Carbon Dioxide 35 mmol/L (20-30); Chloride 104 mmol/L (98-107)
[2023-07-05 06:13] LABS: Anion Gap 11 (5-15); Aspartate Aminotransferase 49 U/L (13-40); BUN/Creatinine Ratio 37.4 (10.0-20.0); Bilirubin, Total 1.1 mg/dL (0.2-1.0); Potassium 3.1 mmol/L (3.5-5.1); Total Protein 6.8 g/dL (5.7-8.2)
[2023-07-05 06:15] LABS: Sodium 150 mmol/L (136-145)
[2023-07-05 06:17] LABS: Blood Urea Nitrogen 128 mg/dL (9-23)
[2023-07-05] MEDS: CALCIUM ACETATE 667 MG CAP PO SCH ×3 (06:35→21:12)
[2023-07-05 07:34] LABS: Base Excess 11.9 mmol/L (-2.0-2.0)
[2023-07-05 07:36] LABS: Glucose 155 mg/dL (74-106)
[2023-07-05] MEDS: MICAFUNGIN SODIUM 100 MG in SODIUM CHL 0.9% 100 ML IV SCH (08:54)
[2023-07-05] MEDS: POTASSIUM CHL 20MEQ/100ML 100 ML IV SCH ×4 (09:52→22:39)
[2023-07-05] MEDS: PANTOPRAZOLE 40 MG/10 ML VIAL INJ IV SCH (09:53)
[2023-07-05] MEDS: ENOXAPARIN SOD 40 MG/0.4 ML SYRINGE SC SCH (10:00)
[2023-07-05] MEDS ORDERED: ACETAMINOPHEN 650 mg PER 20.3 mL UD ONE (10:42)
[2023-07-05] MEDS: CEFEPIME 2GM/50ML NS 50 ML IV SCH (10:47)
[2023-07-05] MEDS: SODIUM CHLOR 0.9% PF (SALINE LOCK) 10ML VIAL/SYR IV SCH ×2 (11:08→21:13)
[2023-07-05] MEDS: NOREPINEPHRINE BITARTRATE 32 MG in SODIUM CHL 0.9% 218 ML IV SCH (14:45)
[2023-07-05 15:40] LABS: Potassium 3.5 mmol/L (3.5-5.1)
[2023-07-05 15:46] LABS: Magnesium 2.1 mg/dL (1.6-2.6)
[2023-07-05] MEDS: ACETAMINOPHEN 650 mg PER 20.3 mL UD GT PRN (16:51)
[2023-07-05 19:01] LABS: Magnesium 2.1 mg/dL (1.6-2.6)
[2023-07-05 19:05] LABS: Potassium 3.4 mmol/L (3.5-5.1)
[2023-07-05] MEDS: MIDAZOLAM DRIP 50 mg/50mL 50 ML IV SCH (19:45)
[2023-07-05] MEDS ORDERED: POTASSIUM CHL 20MEQ/100ML 200 ML IV ONE (20:06)
[2023-07-05] MEDS: LINEZOLID 600MG/300ML 300 ML IV SCH (21:12)
[2023-07-05] MEDS: fentaNYL Drip 2500mCg/250mlNS 250 ML IV SCH (22:50)
[2023-07-05] MEDS ORDERED: FUROSEMIDE 40 MG/4 ML VIAL ONE (23:11)
[2023-07-06] VITALS (83 sets, daily range): BP systolic 115–170; BP diastolic 63–113; PULSE 46–87; RESP 9–34; TEMP 97.7–101; O2SAT 91–100
[2023-07-06] MEDS: ALBUTEROL SULF 2.5 MG/0.5ML(0.5%) NEB SOLN NEB SCH ×3 (00:41→18:44)
[2023-07-06] MEDS: IPRATROPIUM BROM 0.5 MG/2.5ML INH SOL NEB SCH ×3 (00:41→18:44)
[2023-07-06] MEDS: PROPOFOL 100 ML IV SCH (03:21)
[2023-07-06 04:23] LABS: Eosinophils # (auto) 0.1 10 ^3/uL (0-0.8)
[2023-07-06 04:26] LABS: Basophils # (auto) 0.2 10 ^3/uL (0-0.2); Basophils % (auto) 1.4 % (0.0-2.0); Eosinophils % (auto) 0.9 % (0.0-7.0); Hematocrit 26.7 % (41.0-53.0); Hemoglobin 8.9 g/dL (13.5-17.5); Lymphocytes % (auto) 8.7 % (10.0-50.0); Mean Corpuscular Hemoglobin 28.3 pg (28.0-32.0); Mean Corpuscular Hgb Conc. 33.3 g/dL (32.0-36.0); Mean Corpuscular Volume 85.1 fL (80.0-100.0); Monocytes # (auto) 1.7 10 ^3/uL (0-1.3); Monocytes % (auto) 14.1 % (0.0-12.0); Neutrophils # (auto) 9.1 10 ^3/uL (1.6-8.6); Neutrophils % (auto) 74.9 % (37.0-80.0); Red Blood Cells 3.14 10^6/uL (4.5-5.90); Red Cell Distribution Width 14.3 % (11.8-14.3); White Blood Cell 12.1 10^3/uL (4.4-10.8)
[2023-07-06 04:50] LABS: Alanine Aminotransferase 35 U/L (7-40); Albumin 3.6 g/dL (3.2-4.8); Alkaline Phosphatase 110 U/L (46-116); Anion Gap 12 (5-15); Aspartate Aminotransferase 64 U/L (13-40); BUN/Creatinine Ratio 37.6 (10.0-20.0); Bilirubin, Total 1.1 mg/dL (0.2-1.0); Calcium 9.9 mg/dL (8.7-10.4); Carbon Dioxide 32 mmol/L (20-30); Chloride 109 mmol/L (98-107); Glucose 107 mg/dL (74-106); Magnesium 2.1 mg/dL (1.6-2.6); Potassium 3.2 mmol/L (3.5-5.1); Sodium 153 mmol/L (136-145); Total Protein 6.5 g/dL (5.7-8.2)
[2023-07-06] MEDS: metroNIDAZOLE 500MG/100ML 100 ML IV SCH ×3 (05:09→21:52)
[2023-07-06 05:17] LABS: Blood Urea Nitrogen 126 mg/dL (9-23)
[2023-07-06] MEDS: CALCIUM ACETATE 667 MG CAP PO SCH ×3 (06:00→21:52)
[2023-07-06] MEDS: CEFEPIME 2GM/50ML NS 50 ML IV SCH (09:23)
[2023-07-06] MEDS: LINEZOLID 600MG/300ML 300 ML IV SCH ×2 (09:23→21:52)
[2023-07-06] MEDS: ENOXAPARIN SOD 40 MG/0.4 ML SYRINGE SC SCH (09:23)
[2023-07-06] MEDS: PANTOPRAZOLE 40 MG/10 ML VIAL INJ IV SCH (09:23)
[2023-07-06 09:28] LABS: Base Excess 6.8 mmol/L (-2.0-2.0)
[2023-07-06 09:53] LABS: Base Excess 6.8 mmol/L (-2.0-2.0)
[2023-07-06] MEDS ORDERED: FUROSEMIDE 100 MG/10ML VIAL IV SCH (10:00)
[2023-07-06] MEDS: SODIUM CHLOR 0.9% PF (SALINE LOCK) 10ML VIAL/SYR IV SCH ×2 (11:20→21:52)
[2023-07-06] MEDS: MICAFUNGIN SODIUM 100 MG in SODIUM CHL 0.9% 100 ML IV SCH (11:55)
[2023-07-06] MEDS: SOD CHL 0.45% 1,000 ML IV SCH ×2 (13:23→21:36)
[2023-07-06] MEDS: DOPamine 1600MCG/ML D5W 250 ML IV SCH (13:24)
[2023-07-06] MEDS: POTASSIUM CHL 20MEQ/100ML 100 ML IV SCH ×2 (13:30→15:35)
[2023-07-06] MEDS: NOREPINEPHRINE BITARTRATE 32 MG in SODIUM CHL 0.9% 218 ML IV SCH (13:30)
[2023-07-06] MEDS ORDERED: MORPHINE SULFATE INJ 2 MG/ml SYRG IV PRN (15:15)
[2023-07-06] MEDS: ACETAMINOPHEN 650 mg PER 20.3 mL UD GT PRN (17:26)
[2023-07-06 18:59] LABS: Potassium 3.3 mmol/L (3.5-5.1)
[2023-07-06] MEDS: fentaNYL Drip 2500mCg/250mlNS 250 ML IV SCH (19:45)
[2023-07-06] MEDS: AMIODARONE 450mg/250ml AE 250 ML IV SCH (22:07)
[2023-07-07] VITALS (37 sets, daily range): BP systolic 134–188; BP diastolic 54–89; PULSE 64–97; RESP 12–29; TEMP 98.8–100.1; O2SAT 90–97
[2023-07-07] MEDS: IPRATROPIUM BROM 0.5 MG/2.5ML INH SOL NEB SCH ×4 (00:16→18:40)
[2023-07-07] MEDS: ALBUTEROL SULF 2.5 MG/0.5ML(0.5%) NEB SOLN NEB SCH ×4 (00:16→18:40)
[2023-07-07 04:23] LABS: Basophils # (auto) 0.1 10 ^3/uL (0-0.2); Basophils % (auto) 0.6 % (0.0-2.0); Eosinophils # (auto) 0 10 ^3/uL (0-0.8); Eosinophils % (auto) 0.3 % (0.0-7.0); Hematocrit 28.7 % (41.0-53.0); Hemoglobin 9.5 g/dL (13.5-17.5); Lymphocytes # (auto) 0.8 10 ^3/uL (0.4-5.4); Lymphocytes % (auto) 6.7 % (10.0-50.0); Mean Corpuscular Hemoglobin 28.6 pg (28.0-32.0); Mean Corpuscular Hgb Conc. 33.3 g/dL (32.0-36.0); Monocytes # (auto) 1.1 10 ^3/uL (0-1.3); Monocytes % (auto) 9.3 % (0.0-12.0); Neutrophils # (auto) 10.1 10 ^3/uL (1.6-8.6); Neutrophils % (auto) 83.1 % (37.0-80.0); Red Blood Cells 3.33 10^6/uL (4.5-5.90); Red Cell Distribution Width 14.2 % (11.8-14.3); White Blood Cell 12.2 10^3/uL (4.4-10.8)
[2023-07-07 04:42] LABS: Alanine Aminotransferase 45 U/L (7-40); Albumin 3.6 g/dL (3.2-4.8); Alkaline Phosphatase 117 U/L (46-116); Anion Gap 11 (5-15); Aspartate Aminotransferase 80 U/L (13-40); BUN/Creatinine Ratio 39.5 (10.0-20.0); Bilirubin, Total 1.5 mg/dL (0.2-1.0); Calcium 9.7 mg/dL (8.7-10.4); Carbon Dioxide 33 mmol/L (20-30); Chloride 113 mmol/L (98-107); Glucose 127 mg/dL (74-106); Potassium 3.3 mmol/L (3.5-5.1); Sodium 157 mmol/L (136-145); Total Protein 6.6 g/dL (5.7-8.2)
[2023-07-07 04:55] LABS: Blood Urea Nitrogen 111 mg/dL (9-23)
[2023-07-07] MEDS: metroNIDAZOLE 500MG/100ML 100 ML IV SCH ×4 (06:00→21:16)
[2023-07-07] MEDS: CALCIUM ACETATE 667 MG CAP PO SCH ×3 (06:00→21:16)
[2023-07-07] MEDS: SOD CHL 0.45% 1,000 ML IV SCH ×2 (07:45→21:15)
[2023-07-07] MEDS: MICAFUNGIN SODIUM 100 MG in SODIUM CHL 0.9% 100 ML IV SCH (09:00)
[2023-07-07] MEDS: PANTOPRAZOLE 40 MG/10 ML VIAL INJ IV SCH (09:31)
[2023-07-07] MEDS: SODIUM CHLOR 0.9% PF (SALINE LOCK) 10ML VIAL/SYR IV SCH ×2 (09:31→21:16)
[2023-07-07] MEDS: ENOXAPARIN SOD 40 MG/0.4 ML SYRINGE SC SCH (09:31)
[2023-07-07] MEDS: CEFEPIME 2GM/50ML NS 50 ML IV SCH (10:01)
[2023-07-07] MEDS: DOPamine 1600MCG/ML D5W 250 ML IV SCH ×2 (12:00→19:55)
[2023-07-07] MEDS: AMIODARONE 450mg/250ml AE 250 ML IV SCH (13:13)
[2023-07-07] MEDS: LINEZOLID 600MG/300ML 300 ML IV SCH ×2 (13:13→21:16)
[2023-07-07] MEDS: NOREPINEPHRINE BITARTRATE 32 MG in SODIUM CHL 0.9% 218 ML IV SCH (13:30)
[2023-07-07] MEDS: POTASSIUM CHL 20MEQ/100ML 100 ML IV SCH ×2 (21:16→23:13)
[2023-07-07] MEDS: LABETALOL HCL 5 MG/ML 4ML SYRINGE IV PRN (23:14)
[2023-07-08] VITALS (49 sets, daily range): BP systolic 139–180; BP diastolic 13–116; PULSE 59–102; RESP 9–31; TEMP 97.9–100.3; O2SAT 90–99
[2023-07-08] MEDS: IPRATROPIUM BROM 0.5 MG/2.5ML INH SOL NEB SCH ×4 (00:29→18:15)
[2023-07-08] MEDS: ALBUTEROL SULF 2.5 MG/0.5ML(0.5%) NEB SOLN NEB SCH ×3 (00:29→11:51)
[2023-07-08] MEDS: hydrALAZINE HCL 20 MG/ML VL IV PRN ×4 (03:22→22:11)
[2023-07-08] MEDS: AMIODARONE 450mg/250ml AE 250 ML IV SCH (03:23)
[2023-07-08] MEDS: SOD CHL 0.45% 1,000 ML IV SCH (03:23)
[2023-07-08 04:12] LABS: Basophils # (auto) 0.1 10 ^3/uL (0-0.2); Basophils % (auto) 0.8 % (0.0-2.0); Eosinophils # (auto) 0 10 ^3/uL (0-0.8); Eosinophils % (auto) 0.3 % (0.0-7.0); Hematocrit 29.6 % (41.0-53.0); Hemoglobin 9.7 g/dL (13.5-17.5); Lymphocytes % (auto) 9.6 % (10.0-50.0); Mean Corpuscular Hemoglobin 28.4 pg (28.0-32.0); Mean Corpuscular Hgb Conc. 32.8 g/dL (32.0-36.0); Mean Corpuscular Volume 86.8 fL (80.0-100.0); Monocytes # (auto) 1.2 10 ^3/uL (0-1.3); Monocytes % (auto) 11.7 % (0.0-12.0); Neutrophils # (auto) 7.9 10 ^3/uL (1.6-8.6); Neutrophils % (auto) 77.6 % (37.0-80.0); Red Blood Cells 3.42 10^6/uL (4.5-5.90); Red Cell Distribution Width 14.4 % (11.8-14.3); White Blood Cell 10.2 10^3/uL (4.4-10.8)
[2023-07-08 04:26] LABS: Alanine Aminotransferase 47 U/L (7-40); Albumin 3.5 g/dL (3.2-4.8); Alkaline Phosphatase 102 U/L (46-116); Anion Gap 9 (5-15); Aspartate Aminotransferase 67 U/L (13-40); BUN/Creatinine Ratio 42.9 (10.0-20.0); Bilirubin, Total 1.3 mg/dL (0.2-1.0); Calcium 9.5 mg/dL (8.7-10.4); Carbon Dioxide 32 mmol/L (20-30); Chloride 121 mmol/L (98-107); Glucose 135 mg/dL (74-106); Potassium 3.5 mmol/L (3.5-5.1); Total Protein 6.5 g/dL (5.7-8.2)
[2023-07-08] MEDS: metroNIDAZOLE 500MG/100ML 100 ML IV SCH ×3 (05:26→22:06)
[2023-07-08] MEDS: CALCIUM ACETATE 667 MG CAP PO SCH ×3 (05:26→22:00)
[2023-07-08] MEDS ORDERED: ALBUTEROL MEDNEB 2.5 mg/3ml NEB ONE ×2 (05:34→11:39)
[2023-07-08 05:50] LABS: Blood Urea Nitrogen 94 mg/dL (9-23); Sodium 162 mmol/L (136-145)
[2023-07-08] MEDS ORDERED: LACTATED RINGER'S 1,000 ML IV SCH (06:15)
[2023-07-08] MEDS: ENOXAPARIN SOD 40 MG/0.4 ML SYRINGE SC SCH (08:53)
[2023-07-08] MEDS: PANTOPRAZOLE 40 MG/10 ML VIAL INJ IV SCH (08:54)
[2023-07-08] MEDS: MICAFUNGIN SODIUM 100 MG in SODIUM CHL 0.9% 100 ML IV SCH (09:02)
[2023-07-08] MEDS: CEFEPIME 2GM/50ML NS 50 ML IV SCH (09:03)
[2023-07-08] MEDS: SODIUM CHLOR 0.9% PF (SALINE LOCK) 10ML VIAL/SYR IV SCH ×2 (09:03→22:06)
[2023-07-08] MEDS: LINEZOLID 600MG/300ML 300 ML IV SCH ×2 (12:29→22:06)
[2023-07-08] MEDS: D5W 5% 1,000 ML IV SCH ×2 (12:37→20:23)
[2023-07-08] MEDS: NOREPINEPHRINE BITARTRATE 32 MG in SODIUM CHL 0.9% 218 ML IV SCH (12:38)
[2023-07-08] MEDS ORDERED: CLINIMIX PER PHARMACY 0 ML IV SCH (16:15)
[2023-07-08 16:56] LABS: Magnesium 2.3 mg/dL (1.6-2.6)
[2023-07-08 16:58] LABS: Phosphorus 5.3 mg/dL (2.4-5.1)
[2023-07-08] MEDS: ALBUTEROL MEDNEB 2.5 mg/3ml NEB NEB SCH (18:14)
[2023-07-08] MEDS ORDERED: DEXTROSE (50%) 50ML SYRG IV SCH (20:00)
[2023-07-08] MEDS: AMINO ACID INFUSION IN D10W 1,000 ML IV NR (20:23)
[2023-07-08] MEDS: ACCU-CHEK COMFORT CURVE STRIP VI SCH (23:41)
[2023-07-08] MEDS: InsuLIN REG 1unit/0.01ml Soln (100units/ml) SC SCH (23:48)
[2023-07-09] VITALS (76 sets, daily range): BP systolic 115–177; BP diastolic 45–98; PULSE 67–126; RESP 12–37; TEMP 97.9–99.2; O2SAT 92–99
[2023-07-09] MEDS: ALBUTEROL MEDNEB 2.5 mg/3ml NEB NEB SCH ×4 (00:43→18:31)
[2023-07-09] MEDS: IPRATROPIUM BROM 0.5 MG/2.5ML INH SOL NEB SCH ×4 (00:44→18:31)
[2023-07-09] MEDS: D5W 5% 1,000 ML IV SCH ×4 (03:48→21:18)
[2023-07-09 04:46] LABS: Alanine Aminotransferase 45 U/L (7-40); Albumin 3.5 g/dL (3.2-4.8); Alkaline Phosphatase 89 U/L (46-116); Anion Gap 10 (5-15); Aspartate Aminotransferase 57 U/L (13-40); BUN/Creatinine Ratio 37.3 (10.0-20.0); Calcium 9.1 mg/dL (8.7-10.4); Carbon Dioxide 29 mmol/L (20-30); Chloride 123 mmol/L (98-107); Glucose 156 mg/dL (74-106); Phosphorus 3.3 mg/dL (2.4-5.1); Potassium 3.4 mmol/L (3.5-5.1)
[2023-07-09 04:47] LABS: Bilirubin, Total 1.2 mg/dL (0.2-1.0); Total Protein 6.4 g/dL (5.7-8.2)
[2023-07-09] MEDS: hydrALAZINE HCL 20 MG/ML VL IV PRN ×2 (05:02→12:35)
[2023-07-09 05:10] LABS: Blood Urea Nitrogen 66 mg/dL (9-23); Sodium 162 mmol/L (136-145)
[2023-07-09] MEDS: DOPamine 1600MCG/ML D5W 250 ML IV SCH (05:30)
[2023-07-09] MEDS: ACCU-CHEK COMFORT CURVE STRIP VI SCH ×4 (05:30→23:42)
[2023-07-09] MEDS: metroNIDAZOLE 500MG/100ML 100 ML IV SCH ×3 (05:30→21:05)
[2023-07-09] MEDS: InsuLIN REG 1unit/0.01ml Soln (100units/ml) SC SCH ×4 (05:35→23:48)
[2023-07-09] MEDS: CALCIUM ACETATE 667 MG CAP PO SCH ×3 (05:36→21:07)
[2023-07-09] MEDS: POTASSIUM CHL 20MEQ/100ML 100 ML IV SCH ×2 (07:58→10:57)
[2023-07-09] MEDS: MICAFUNGIN SODIUM 100 MG in SODIUM CHL 0.9% 100 ML IV SCH (07:58)
[2023-07-09] MEDS ORDERED: LORazepam 2MG/ML-1ML VIAL IV PRN (10:30)
[2023-07-09] MEDS ORDERED: D5W 5% 1,000 ML IV SCH (10:45)
[2023-07-09] MEDS: PANTOPRAZOLE 40 MG/10 ML VIAL INJ IV SCH (10:53)
[2023-07-09] MEDS: ENOXAPARIN SOD 40 MG/0.4 ML SYRINGE SC SCH (10:54)
[2023-07-09] MEDS: SODIUM CHLOR 0.9% PF (SALINE LOCK) 10ML VIAL/SYR IV SCH ×2 (10:55→21:05)
[2023-07-09] MEDS: LINEZOLID 600MG/300ML 300 ML IV SCH ×2 (12:34→21:04)
[2023-07-09] MEDS: NOREPINEPHRINE BITARTRATE 32 MG in SODIUM CHL 0.9% 218 ML IV SCH (13:30)
[2023-07-09] MEDS ORDERED: hydrALAZINE HCL 20 MG/ML VL IV PRN (14:45)
[2023-07-09] MEDS ORDERED: cloNIDine 0.1 mg/24hr 7 DAY PATCH TD ONE (14:45)
[2023-07-09] MEDS ORDERED: cloNIDine 0.1 mg/24hr 7 DAY PATCH TD SCH (14:45)
[2023-07-09] MEDS: AMINO ACID INFUSION IN D10W 1,000 ML IV NR (21:04)
[2023-07-09] MEDS: CEFEPIME 2GM/50ML NS 50 ML IV SCH (21:04)
[2023-07-10] VITALS (56 sets, daily range): BP systolic 130–172; BP diastolic 51–99; PULSE 68–138; RESP 10–31; TEMP 98.1–100.1; O2SAT 88–100
[2023-07-10] MEDS: IPRATROPIUM BROM 0.5 MG/2.5ML INH SOL NEB SCH ×4 (00:03→18:00)
[2023-07-10] MEDS: ALBUTEROL MEDNEB 2.5 mg/3ml NEB NEB SCH ×4 (00:03→18:00)
[2023-07-10] MEDS: D5W 5% 1,000 ML IV SCH ×3 (01:26→15:50)
[2023-07-10 05:07] LABS: Basophils # (auto) 0.1 10 ^3/uL (0-0.2); Basophils % (auto) 0.7 % (0.0-2.0); Eosinophils # (auto) 0.4 10 ^3/uL (0-0.8); Eosinophils % (auto) 4.1 % (0.0-7.0); Hematocrit 28.3 % (41.0-53.0); Hemoglobin 9.3 g/dL (13.5-17.5); Lymphocytes # (auto) 1.4 10 ^3/uL (0.4-5.4); Lymphocytes % (auto) 15.7 % (10.0-50.0); Mean Corpuscular Hemoglobin 28.4 pg (28.0-32.0); Mean Corpuscular Hgb Conc. 32.8 g/dL (32.0-36.0); Mean Corpuscular Volume 86.5 fL (80.0-100.0); Monocytes # (auto) 0.9 10 ^3/uL (0-1.3); Monocytes % (auto) 10.4 % (0.0-12.0); Neutrophils # (auto) 6.2 10 ^3/uL (1.6-8.6); Neutrophils % (auto) 69.1 % (37.0-80.0); Red Blood Cells 3.27 10^6/uL (4.5-5.90); Red Cell Distribution Width 14.7 % (11.8-14.3)
[2023-07-10 05:26] LABS: Alanine Aminotransferase 48 U/L (7-40); Alkaline Phosphatase 83 U/L (46-116); Anion Gap 9 (5-15); Calcium 7.9 mg/dL (8.7-10.4); Carbon Dioxide 26 mmol/L (20-30); Chloride 118 mmol/L (98-107); Glucose 132 mg/dL (74-106); Magnesium 1.6 mg/dL (1.6-2.6); Potassium 3.3 mmol/L (3.5-5.1)
[2023-07-10 05:27] LABS: Albumin 3.1 g/dL (3.2-4.8); Aspartate Aminotransferase 61 U/L (13-40); BUN/Creatinine Ratio 32.1 (10.0-20.0); Phosphorus 3.1 mg/dL (2.4-5.1); Total Protein 5.6 g/dL (5.7-8.2)
[2023-07-10 05:28] LABS: Blood Urea Nitrogen 53 mg/dL (9-23); Sodium 153 mmol/L (136-145)
[2023-07-10] MEDS: InsuLIN REG 1unit/0.01ml Soln (100units/ml) SC SCH ×3 (06:00→18:00)
[2023-07-10] MEDS: CALCIUM ACETATE 667 MG CAP PO SCH ×3 (06:00→22:00)
[2023-07-10] MEDS: ACCU-CHEK COMFORT CURVE STRIP VI SCH ×4 (06:02→23:44)
[2023-07-10] MEDS: metroNIDAZOLE 500MG/100ML 100 ML IV SCH ×3 (06:03→22:07)
[2023-07-10] MEDS: POTASSIUM CHL 20MEQ/100ML 100 ML IV SCH ×2 (06:03→09:35)
[2023-07-10] MEDS: MICAFUNGIN SODIUM 100 MG in SODIUM CHL 0.9% 100 ML IV SCH (07:47)
[2023-07-10] MEDS: CEFEPIME 2GM/50ML NS 50 ML IV SCH ×2 (09:35→23:00)
[2023-07-10] MEDS: LINEZOLID 600MG/300ML 300 ML IV SCH ×2 (09:35→22:11)
[2023-07-10] MEDS: THIAMINE 100mg/ml INJ (200mg/2ml VIAL) IV SCH (09:35)
[2023-07-10] MEDS: ENOXAPARIN SOD 40 MG/0.4 ML SYRINGE SC SCH (09:35)
[2023-07-10] MEDS: PANTOPRAZOLE 40 MG/10 ML VIAL INJ IV SCH (09:35)
[2023-07-10] MEDS: SODIUM CHLOR 0.9% PF (SALINE LOCK) 10ML VIAL/SYR IV SCH ×2 (09:36→22:15)
[2023-07-10] MEDS ORDERED: POTASSIUM PHOSPHATE 22 MEQ in SODIUM CHL 0.9% 100 ML IV ONE (10:00)
[2023-07-10] MEDS ORDERED: MAGNESIUM SULFATE 1GM/100ML 100 ML IV ONE (14:00)
[2023-07-10] MEDS: AMINO ACID INFUSION IN D10W 1,000 ML IV NR (20:05)
[2023-07-11] VITALS (73 sets, daily range): BP systolic 125–191; BP diastolic 46–124; PULSE 63–80; RESP 12–29; TEMP 98.2–99.6; O2SAT 87–100
[2023-07-11] MEDS: InsuLIN REG 1unit/0.01ml Soln (100units/ml) SC SCH ×5 (00:36→23:26)
[2023-07-11] MEDS: D5W 5% 1,000 ML IV SCH ×3 (00:46→14:59)
[2023-07-11 05:06] LABS: Alanine Aminotransferase 64 U/L (7-40); Albumin 3.3 g/dL (3.2-4.8); Alkaline Phosphatase 96 U/L (46-116); Anion Gap 9 (5-15); Aspartate Aminotransferase 89 U/L (13-40); BUN/Creatinine Ratio 24.5 (10.0-20.0); Calcium 7.8 mg/dL (8.7-10.4); Carbon Dioxide 22 mmol/L (20-30); Chloride 118 mmol/L (98-107); Glucose 107 mg/dL (74-106); Magnesium 1.7 mg/dL (1.6-2.6); Potassium 3.7 mmol/L (3.5-5.1); Sodium 149 mmol/L (136-145)
[2023-07-11 05:07] LABS: Bilirubin, Total 1.1 mg/dL (0.2-1.0); Phosphorus 3.6 mg/dL (2.4-5.1); Total Protein 5.9 g/dL (5.7-8.2)
[2023-07-11 05:33] LABS: Blood Urea Nitrogen 35 mg/dL (9-23)
[2023-07-11] MEDS: CALCIUM ACETATE 667 MG CAP PO SCH ×3 (06:00→22:00)
[2023-07-11] MEDS: ALBUTEROL MEDNEB 2.5 mg/3ml NEB NEB SCH ×4 (06:22→18:21)
[2023-07-11] MEDS: IPRATROPIUM BROM 0.5 MG/2.5ML INH SOL NEB SCH ×4 (06:22→18:21)
[2023-07-11] MEDS: ACCU-CHEK COMFORT CURVE STRIP VI SCH ×4 (06:28→23:26)
[2023-07-11] MEDS: metroNIDAZOLE 500MG/100ML 100 ML IV SCH ×3 (06:31→21:35)
[2023-07-11] MEDS: MICAFUNGIN SODIUM 100 MG in SODIUM CHL 0.9% 100 ML IV SCH (09:20)
[2023-07-11] MEDS: PANTOPRAZOLE 40 MG/10 ML VIAL INJ IV SCH (09:20)
[2023-07-11] MEDS: CEFEPIME 2GM/50ML NS 50 ML IV SCH ×2 (09:28→21:36)
[2023-07-11] MEDS: ENOXAPARIN SOD 40 MG/0.4 ML SYRINGE SC SCH (09:29)
[2023-07-11] MEDS: LINEZOLID 600MG/300ML 300 ML IV SCH ×2 (09:29→21:35)
[2023-07-11] MEDS: THIAMINE 100mg/ml INJ (200mg/2ml VIAL) IV SCH (10:16)
[2023-07-11] MEDS: SODIUM CHLOR 0.9% PF (SALINE LOCK) 10ML VIAL/SYR IV SCH ×2 (10:16→22:08)
[2023-07-11] MEDS ORDERED: FUROSEMIDE 100 MG/10ML VIAL IV ONE (16:00)
[2023-07-11] MEDS: AMINO ACID INFUSION IN D10W 1,000 ML IV NR (20:25)
[2023-07-12] VITALS (36 sets, daily range): BP systolic 124–171; BP diastolic 55–94; PULSE 64–85; RESP 10–27; TEMP 98.2–99; O2SAT 94–100
[2023-07-12 05:33] LABS: Basophils # (auto) 0.1 10 ^3/uL (0-0.2); Basophils % (auto) 0.9 % (0.0-2.0); Eosinophils # (auto) 0.4 10 ^3/uL (0-0.8); Eosinophils % (auto) 4.6 % (0.0-7.0); Hematocrit 30.4 % (41.0-53.0); Hemoglobin 10.1 g/dL (13.5-17.5); Lymphocytes # (auto) 1.2 10 ^3/uL (0.4-5.4); Mean Corpuscular Hemoglobin 27.8 pg (28.0-32.0); Mean Corpuscular Hgb Conc. 33.2 g/dL (32.0-36.0); Mean Corpuscular Volume 83.6 fL (80.0-100.0); Monocytes # (auto) 0.9 10 ^3/uL (0-1.3); Monocytes % (auto) 10.3 % (0.0-12.0); Neutrophils # (auto) 6.3 10 ^3/uL (1.6-8.6); Neutrophils % (auto) 70.2 % (37.0-80.0); Nucleated Red Blood Cells % 0.1 %; Red Blood Cells 3.64 10^6/uL (4.5-5.90); Red Cell Distribution Width 13.9 % (11.8-14.3); White Blood Cell 8.9 10^3/uL (4.4-10.8)
[2023-07-12 05:46] LABS: Alanine Aminotransferase 82 U/L (7-40); Alkaline Phosphatase 109 U/L (46-116); Anion Gap 10 (5-15); BUN/Creatinine Ratio 25.2 (10.0-20.0); Blood Urea Nitrogen 33 mg/dL (9-23); Calcium 8.1 mg/dL (8.7-10.4); Carbon Dioxide 20 mmol/L (20-30); Chloride 115 mmol/L (98-107); Glucose 124 mg/dL (74-106); Magnesium 1.4 mg/dL (1.6-2.6); Potassium 3.4 mmol/L (3.5-5.1); Sodium 145 mmol/L (136-145)
[2023-07-12 05:47] LABS: Albumin 3.6 g/dL (3.2-4.8)
[2023-07-12 05:48] LABS: Aspartate Aminotransferase 106 U/L (13-40); Bilirubin, Total 1.2 mg/dL (0.2-1.0); Phosphorus 3.8 mg/dL (2.4-5.1); Total Protein 6.5 g/dL (5.7-8.2)
[2023-07-12] MEDS: CALCIUM ACETATE 667 MG CAP PO SCH ×2 (06:00→13:32)
[2023-07-12] MEDS: InsuLIN REG 1unit/0.01ml Soln (100units/ml) SC SCH ×3 (06:00→18:00)
[2023-07-12] MEDS: ACCU-CHEK COMFORT CURVE STRIP VI SCH ×3 (06:32→18:00)
[2023-07-12] MEDS: metroNIDAZOLE 500MG/100ML 100 ML IV SCH (06:32)
[2023-07-12] MEDS: D5W 5% 1,000 ML IV SCH ×2 (06:38→14:21)
[2023-07-12] MEDS: ALBUTEROL MEDNEB 2.5 mg/3ml NEB NEB SCH ×4 (06:53→18:27)
[2023-07-12] MEDS: IPRATROPIUM BROM 0.5 MG/2.5ML INH SOL NEB SCH ×4 (06:53→18:27)
[2023-07-12] MEDS: MICAFUNGIN SODIUM 100 MG in SODIUM CHL 0.9% 100 ML IV SCH (09:23)
[2023-07-12] MEDS: THIAMINE 100mg/ml INJ (200mg/2ml VIAL) IV SCH (09:24)
[2023-07-12] MEDS: CEFEPIME 2GM/50ML NS 50 ML IV SCH (09:24)
[2023-07-12] MEDS: PANTOPRAZOLE 40 MG/10 ML VIAL INJ IV SCH (09:24)
[2023-07-12] MEDS: SODIUM CHLOR 0.9% PF (SALINE LOCK) 10ML VIAL/SYR IV SCH (09:25)
[2023-07-12] MEDS: ENOXAPARIN SOD 40 MG/0.4 ML SYRINGE SC SCH (09:25)
[2023-07-12] MEDS ORDERED: POTASSIUM CHL 20MEQ/100ML 100 ML IV ONE ×2 (09:30→12:15)
[2023-07-12] MEDS: MAGNESIUM SULFATE 1GM/100ML 100 ML IV SCH ×2 (11:22→13:31)
[2023-07-12] MEDS: LINEZOLID 600MG/300ML 300 ML IV SCH (15:05)
[2023-07-12] MEDS: AMINO ACID INFUSION IN D10W 1,000 ML IV NR (20:52)
== END 2023-07-12 21:50 | disposition short-term general hospital (02) | DRG 853 ==
LOC: ER 16:18 → TELE 20:57 → ICU WEST 06-20 05:40
PROVIDERS: ADMIT Nurse Practitioner; ATTEND Internal Medicine
PROC: 0DTE0ZZ Resection of Large Intestine, Open Approach (ICD-10-PCS; 2023-06-20)
PROC: 02HV33Z Insertion of Infusion Device into Superior Vena Cava, Percutaneous Approach (ICD-10-PCS; 2023-06-20)
PROC: B548ZZA Ultrasonography of Superior Vena Cava, Guidance (ICD-10-PCS; 2023-06-20)
PROC: 5A1955Z Respiratory Ventilation, Greater than 96 Consecutive Hours (ICD-10-PCS; 2023-06-20)
PROC: 0BH17EZ Insertion of Endotracheal Airway into Trachea, Via Natural or Artificial Opening (ICD-10-PCS; 2023-06-20)
PROC: 0D1B0Z4 Bypass Ileum to Cutaneous, Open Approach (ICD-10-PCS; principal; 2023-06-20 16:10)
PROC: 04HY32Z Insertion of Monitoring Device into Lower Artery, Percutaneous Approach (ICD-10-PCS; 2023-06-21)
PROC: 0B958ZZ Drainage of Right Middle Lobe Bronchus, Via Natural or Artificial Opening Endoscopic (ICD-10-PCS; 2023-06-24)
PROC: 0B978ZZ Drainage of Left Main Bronchus, Via Natural or Artificial Opening Endoscopic (ICD-10-PCS; 2023-06-24)
DX: A41.9 Sepsis, unspecified organism (principal); G92.8 Other toxic encephalopathy; J96.01 Acute respiratory failure with hypoxia; K65.1 Peritoneal abscess; N17.0 Acute kidney failure with tubular necrosis; R65.21 Severe sepsis with septic shock; K57.20 Diverticulitis of large intestine with perforation and abscess without bleeding; E87.21 Acute metabolic acidosis; K55.9 Vascular disorder of intestine, unspecified; J90 Pleural effusion, not elsewhere classified; J98.11 Atelectasis; E87.0 Hyperosmolality and hypernatremia; I82.611 Acute embolism and thrombosis of superficial veins of right upper extremity; K52.9 Noninfective gastroenteritis and colitis, unspecified; K70.30 Alcoholic cirrhosis of liver without ascites; E11.22 Type 2 diabetes mellitus with diabetic chronic kidney disease; E11.65 Type 2 diabetes mellitus with hyperglycemia; E66.9 Obesity, unspecified; N18.9 Chronic kidney disease, unspecified; E83.39 Other disorders of phosphorus metabolism; E87.70 Fluid overload, unspecified; I12.9 Hypertensive chronic kidney disease with stage 1 through stage 4 chronic kidney disease, or unspecified chronic kidney disease; E88.09 Other disorders of plasma-protein metabolism, not elsewhere classified; N18.2 Chronic kidney disease, stage 2 (mild); N50.89 Other specified disorders of the male genital organs; D64.9 Anemia, unspecified; Z68.30 Body mass index [BMI] 30.0-30.9, adult; Z79.899 Other long term (current) drug therapy; Z85.46 Personal history of malignant neoplasm of prostate; Z87.891 Personal history of nicotine dependence; Z93.3 Colostomy status
CPT/HCPCS: 36415; 36569; 36600; 70450; 71045; 74018; 74176; 76775; 80048; 80053; 80202; 81001; 82140; 82306; 82570; 82805; 82962; 83036; 83605; 83615; 83690; 83735; 83880; 83970; 84100; 84132; 84156; 84300; 84478; 84484; 85007; 85025; 85027; 85610; 85730; 86850; 86900; 86901; 87040; 87045; 87070; 87075; 87077; 87081; 87086; 87186; 87205; 87427; 87493; 92610; 93005; 93306; 93971; 94002; 94003; 94640; 95819; 96365; 96366; 96367; 97110; 97163; 97530; C9113; G0378; J0171; J0330; J0610; J0692; J0696; J1100; J1815; J1956; J2001; J2248; J2250; J2405; J2704; J3480; J3490; J7060; P9047